=== PATIENT | female | born 1970 | race Caucasian/White ===

== ENCOUNTER 2018-05-30 09:21 | Emergency (ER) | payer MEDICARE, MEDICAID ==
[~2018-05-30] VITALS: Ht 177.8 cm; Wt 136.4 kg
[2018-05-30] MEDS ORDERED: OXCA300T4 PO (09:36)
[2018-05-30] MEDS ORDERED: QUET300T2 PO (09:36)
[2018-05-30] MEDS ORDERED: ALB0.5UD IH (09:36)
[2018-05-30] MEDS ORDERED: VENL150C2 PO (09:36)
[2018-05-30] MEDS ORDERED: FLUT1DIS4 INH (09:36)
[2018-05-30] MEDS ORDERED: normal saline 1000ML IV soln IVB ONE (09:40)
[2018-05-30] MEDS ORDERED: LORazepam 2 mg/ml vial IV ONE ×2 (09:40→11:10)
[2018-05-30] MEDS ORDERED: oxcarbazepine 150mg tablet PO STA (09:41)
[2018-05-30] MEDS ORDERED: quetiapine 100mg tablet PO SCH (09:45)
[2018-05-30 10:21] LABS: BASOPHILS % (AUTO) 0.3 % (0-1); EOSINOPHILS % (AUTO) 0 % (0-6); HEMATOCRIT 37.4 % (35.0-45.0); HEMOGLOBIN 13.2 g/dl (12.0-16.0); LYMPHOCYTES # (AUTO) 1.5 X10'3 (1.1-4.8); LYMPHOCYTES % (AUTO) 19.8 % (21-51); MEAN CORPUSCULAR HEMOGLOBIN 31.4 PG (27.0-31.0); MEAN CORPUSCULAR HGB CONC 35.3 % (33.0-36.5); MEAN PLATELET VOLUME 7.9 FL (7.4-10.4); MONOCYTES # (AUTO) 0.5 X10'3 (0-0.9); MONOCYTES % (AUTO) 6.9 % (2-12); NEUTROPHILS # (AUTO) 5.5 X10'3 (1.8-7.7); PLATELET COUNT 290 X10'3 (140-440); RED BLOOD COUNT 4.21 X10'6 (4.20-5.60); RED CELL DISTRIBUTION WIDTH 14.2 % (11.5-14.5); WHITE BLOOD COUNT 7.5 X10'3 (4.5-11.0)
[2018-05-30 10:31] LABS: PARTIAL THROMBOPLASTIN TIME 29 SECONDS (22-32); PROTHROMBIN TIME 10.6 SECONDS (9.0-12.0)
[2018-05-30 10:39] LABS: ALANINE AMINOTRANSFERASE 35 U/L (12-78); ALBUMIN 3.7 G/DL (3.4-5.0); ALBUMIN/GLOBULIN RATIO 0.9 (1.1-1.5); ALKALINE PHOSPHATASE 94 IU/L (46-116); ANION GAP 10 (8-16); ASPARTATE AMINO TRANSFERASE 19 U/L (10-37); BILIRUBIN,TOTAL 0.6 MG/DL (0.1-1.0); BLOOD UREA NITROGEN 8 MG/DL (7-18); BUN/CREATININE RATIO 9.6 (6.6-38.0); CALCIUM 9.2 MG/DL (8.5-10.1); CHLORIDE 104 MMOL/L (99-107); CREATININE 0.83 MG/DL (0.40-0.90); GLUCOSE 112 MG/DL (70-104); POTASSIUM 3.3 MMOL/L (3.5-5.1); SODIUM 135 MMOL/L (135-145); TOTAL CARBON DIOXIDE 20.6 MMOL/L (24-32); TOTAL PROTEIN 7.6 G/DL (6.4-8.2); eGFR 73 ML/MIN
[2018-05-30] MEDS ORDERED: POTA20TA19 PO (11:06)
[2018-05-30] MEDS ORDERED: diphenhydrAMINE 50 mg/ml inj IV ONE (11:30)
[2018-05-30 12:12] VITALS: BP 136/84
== END 2018-05-30 12:14 | disposition home or self-care (01) ==
LOC: ER 09:21
DX: E87.6 Hypokalemia (principal); J45.909 Unspecified asthma, uncomplicated; F31.9 Bipolar disorder, unspecified; F41.9 Anxiety disorder, unspecified; Z79.899 Other long term (current) drug therapy
CPT/HCPCS: 36415; 71045; 80053; 84484; 85025; 85610; 85730; 93005; 96374; 96375; 99285; J1200; J2060

== ENCOUNTER 2019-06-11 02:09 | Inpatient (IN) | payer BC, MEDICARE ==
[~2019-06-11] VITALS: Ht 177.8 cm; Wt 136.4 kg
[~2019-06-11 02:09] MED LIST: ALB0.5UD IH; FLUT1DIS4 INH; OXCA300T4 PO; QUET300T2 PO; VENL150C2 PO
[2019-06-11] MEDS ORDERED: ondansetron/PF 4mg/2ml inj IV ONE (02:20)
[2019-06-11] MEDS ORDERED: normal saline 1000ML IV soln IVB ONE (02:20)
[2019-06-11] MEDS: morphine 4 MG/ML inj SYRINge IV PRN ×2 (02:26→02:47)
[2019-06-11 02:48] LABS: BASOPHILS # (AUTO) 0.1 X10'3 (0-0.2); BASOPHILS % (AUTO) 0.8 % (0-1); EOSINOPHILS # (AUTO) 0.7 X10'3 (0-0.9); EOSINOPHILS % (AUTO) 7.7 % (0-6); HEMATOCRIT 39.4 % (35.0-45.0); HEMOGLOBIN 13.6 g/dl (12.0-16.0); LYMPHOCYTES # (AUTO) 2.4 X10'3 (1.1-4.8); LYMPHOCYTES % (AUTO) 27.6 % (21-51); MEAN CORPUSCULAR HEMOGLOBIN 31.2 PG (27.0-31.0); MEAN CORPUSCULAR HGB CONC 34.4 g/dL (33.0-36.5); MEAN CORPUSCULAR VOLUME 90.9 FL (78-98); MEAN PLATELET VOLUME 7.9 FL (7.4-10.4); MONOCYTES # (AUTO) 0.6 X10'3 (0-0.9); MONOCYTES % (AUTO) 7.2 % (2-12); NEUTROPHILS % (AUTO) 56.7 % (42-75); PLATELET COUNT 284 X10'3 (140-440); RED BLOOD COUNT 4.34 X10'6 (4.20-5.60); RED CELL DISTRIBUTION WIDTH 14.1 % (11.5-14.5); WHITE BLOOD COUNT 8.8 X10'3 (4.5-11.0)
--- NOTE | 2019-06-11 02:50 | NUR ---
WAS INFORMED BY ELEMENT SETTER THAT DAUGHTER AT BEDSIDE AND ASKING FOR MORE PAIN MEDS STRONGER THAN MORPHINE FOR HER MOTHER. PT PAIN NOT CONTROLLED WITH FIRST PRN DOSE OF MORPHINE, 2ND DOSE GIVEN. INFORMED DAUGHTER AND PT OF PLAN OF CARE AND BOTH VERBALIZED UNDERSTADNING
[2019-06-11 02:59] LABS: ALANINE AMINOTRANSFERASE 64 U/L (12-78); ALBUMIN 3.4 G/DL (3.4-5.0); ALBUMIN/GLOBULIN RATIO 0.9 (1.1-1.5); ALKALINE PHOSPHATASE 128 IU/L (46-116); ANION GAP 11 (8-16); ASPARTATE AMINO TRANSFERASE 41 U/L (10-37); BILIRUBIN,TOTAL 0.2 MG/DL (0.1-1.0); BLOOD UREA NITROGEN 15 MG/DL (7-18); BUN/CREATININE RATIO 16.1 (6.6-38.0); CALCIUM 8.7 MG/DL (8.5-10.1); CHLORIDE 108 MMOL/L (99-107); CREATININE 0.93 MG/DL (0.40-0.90); GLUCOSE 132 MG/DL (70-104); SODIUM 142 MMOL/L (135-145); TOTAL CARBON DIOXIDE 23.5 MMOL/L (24-32); TOTAL PROTEIN 7.2 G/DL (6.4-8.2); eGFR 64 ML/MIN
[2019-06-11 03:43] LABS: LIPASE > 30000 U/L (73-393)
[2019-06-11] MEDS ORDERED: fentaNYL/PF 50MCG/1 ML 2ML syringe IV ONE (04:00)
[2019-06-11 04:36] LABS: CHOLESTEROL 165 MG/DL (0-200); HDL CHOLESTEROL 33 MG/DL (35-60); LDL CHOLESTEROL 79 MG/DL (50-100); TRIGLYCERIDES 304 MG/DL (20-135)
[2019-06-11] MEDS: fentaNYL/PF 50MCG/1 ML 2ML syringe IV PRN ×2 (05:13→05:42)
[2019-06-11] MEDS ORDERED: LORA10TA7 PO (05:39)
[2019-06-11] MEDS ORDERED: OXCA600T5 PO (05:39)
[2019-06-11] MEDS ORDERED: FLUT16SP2 BOTHNARES (05:39)
[2019-06-11] MEDS ORDERED: LACT30003 PO (05:39)
[2019-06-11] MEDS ORDERED: VENL150C2 PO (05:39)
[2019-06-11] MEDS ORDERED: LEVO75TA7 PO (05:39)
[2019-06-11] MEDS ORDERED: CETI10TA14 PO (05:39)
[2019-06-11] MEDS ORDERED: IPRA3AMP9 IH (05:39)
[2019-06-11] MEDS ORDERED: HYDROmorphone 1 mg/ml syringe IV ONE (06:35)
[2019-06-11] MEDS ORDERED: diphenhydrAMINE 25mg capsule PO PRN (09:20)
[2019-06-11] MEDS ORDERED: magnesium 4gm in 100ml NS 100 ML IV PRN (09:20)
[2019-06-11] MEDS: K and/or MAG REPLACEMENT MC SCH (09:20)
[2019-06-11] MEDS ORDERED: potassium CL 10mEq/100ml bag 100 ML IV PRN ×2 (09:20)
[2019-06-11] MEDS ORDERED: HYDROcodone/acetaminophen 5mg/325mg tablet PO PRN (09:20)
[2019-06-11] MEDS ORDERED: magnesium hydroxide 30ml (MOM) UD suspension PO PRN (09:20)
[2019-06-11] MEDS ORDERED: diphenhydrAMINE 50 mg/ml inj IV PRN (09:20)
[2019-06-11] MEDS ORDERED: potassium Cl 20 mEq SR tablet PO PRN ×2 (09:20)
[2019-06-11] MEDS ORDERED: morphine 2 MG/ML inj. syringe IV PRN (09:20)
[2019-06-11] MEDS ORDERED: metoclopramide 5 mg/ml inj IV PRN (09:20)
[2019-06-11] MEDS ORDERED: acetaminophen 325mg tablet PO PRN ×2 (09:20)
[2019-06-11] MEDS ORDERED: acetaminophen 650mg rectal suppository RC PRN (09:20)
[2019-06-11] MEDS ORDERED: magnesium 2GM in 50ml NS 50 ML IV PRN (09:20)
[2019-06-11] MEDS ORDERED: mag hydrox/Alum hydrox/simeth 30ml oral suspension PO PRN (09:20)
[2019-06-11] MEDS ORDERED: magnesium Cl slow-release 64mg tablet PO PRN (09:20)
[2019-06-11] MEDS ORDERED: bisacodyl 10mg suppository rectal RC PRN (09:20)
[2019-06-11 09:43] LABS: CLARITY,URINE SLIGHTLY CLOUDY (Clear); COLOR,URINE STRAW (Yellow); GLUCOSE, URINE NEGATIVE (Neg); KETONES,URINE NEGATIVE (Neg); LEUKOCYTE ESTERASE ,URINE SMALL (Neg); NITRITES, URINE NEGATIVE (Neg); OCCULT BLOOD,URINE NEGATIVE (Neg); PH,URINE 5.5 (4.8-8.0); PROTEIN,URINE NEGATIVE (Neg); UROBILINOGEN,URINE 0.2 E.U/dL (0.2-1.0)
[2019-06-11 09:44] LABS: UA COLLECTION TYPE CLN CATCH MIDSTREAM
[2019-06-11 09:48] LABS: SQUAMOUS EPITHELIAL CELL,UR MODERATE /LPF (FEW)
[2019-06-11 09:49] LABS: BACTERIA,URINE 1+ /HPF (Neg); RBC,URINE 0-2 /HPF (0-2); WBC,URINE 0-4 /HPF (0-4)
[2019-06-11] MEDS: piperacillin/tazo 3.375gm/50ml 50 ML IV SCH ×3 (10:09→23:48)
[2019-06-11] MEDS: albuterol 2.5 MG/3 ML nebule NEB SCH ×3 (10:25→19:41)
[2019-06-11] MEDS: HYDROmorphone 1 mg/ml syringe IV PRN ×3 (10:44→22:30)
[2019-06-11] MEDS ORDERED: albuterol 2.5 MG/3 ML nebule NEB SCH (13:00)
[2019-06-11] MEDS ORDERED: OXCA300T16 PO (13:06)
[2019-06-11] MEDS ORDERED: MONT10TA24 PO (13:06)
[2019-06-11] MEDS ORDERED: RANI150T8 PO (13:06)
[2019-06-11] MEDS: dextrose 5%-normal saline 1,000 ML IV SCH ×3 (13:53→22:36)
[2019-06-11] MEDS: morphine 2 MG/ML inj. syringe IV PRN ×3 (14:00→23:46)
[2019-06-11 17:00] VITALS: BP 120/70
[2019-06-11] MEDS: ondansetron/PF 4mg/2ml inj IV PRN ×2 (17:14→23:46)
--- NOTE | 2019-06-11 18:33 | NUR ---
Problems reprioritized. Patient report given, questions answered & plan of care reviewed with Jolie JENNINGS.
[2019-06-11] MEDS: budesonide 0.5mg/2ml UD nebule IH SCH (19:41)
[2019-06-11 20:00] VITALS: BP 139/81
[2019-06-11] MEDS: quetiapine 100mg tablet PO SCH (21:04)
[2019-06-11] MEDS: oxcarbazepine 150mg tablet PO SCH (21:05)
[2019-06-11] MEDS ORDERED: albuterol 2.5 MG/3 ML nebule NEB PRN (23:05)
[2019-06-12] VITALS (17 sets, daily range): BP systolic 108–172; BP diastolic 62–116
[2019-06-12] MEDS: HYDROmorphone 1 mg/ml syringe IV PRN ×7 (02:53→22:19)
[2019-06-12 05:01] LABS: BASOPHILS % (AUTO) 0.1 % (0-1); EOSINOPHILS # (AUTO) 0.3 X10'3 (0-0.9); EOSINOPHILS % (AUTO) 3.7 % (0-6); HEMATOCRIT 36.7 % (35.0-45.0); HEMOGLOBIN 12.4 g/dl (12.0-16.0); LYMPHOCYTES # (AUTO) 1.2 X10'3 (1.1-4.8); MEAN CORPUSCULAR HEMOGLOBIN 31.1 PG (27.0-31.0); MEAN CORPUSCULAR HGB CONC 33.9 g/dL (33.0-36.5); MEAN CORPUSCULAR VOLUME 91.8 FL (78-98); MEAN PLATELET VOLUME 8.1 FL (7.4-10.4); MONOCYTES # (AUTO) 0.7 X10'3 (0-0.9); MONOCYTES % (AUTO) 8.4 % (2-12); NEUTROPHILS # (AUTO) 6.1 X10'3 (1.8-7.7); NEUTROPHILS % (AUTO) 72.8 % (42-75); PLATELET COUNT 257 X10'3 (140-440); RED CELL DISTRIBUTION WIDTH 14.3 % (11.5-14.5); WHITE BLOOD COUNT 8.3 X10'3 (4.5-11.0)
[2019-06-12 05:16] LABS: ALANINE AMINOTRANSFERASE 58 U/L (12-78); ALBUMIN/GLOBULIN RATIO 0.8 (1.1-1.5); ALKALINE PHOSPHATASE 124 IU/L (46-116); ANION GAP 7 (8-16); ASPARTATE AMINO TRANSFERASE 31 U/L (10-37); BILIRUBIN,TOTAL 0.7 MG/DL (0.1-1.0); BLOOD UREA NITROGEN 10 MG/DL (7-18); BUN/CREATININE RATIO 12.5 (6.6-38.0); CALCIUM 8.7 MG/DL (8.5-10.1); CHLORIDE 105 MMOL/L (99-107); GLUCOSE 123 MG/DL (70-104); MAGNESIUM 1.8 MG/DL (1.5-2.4); SODIUM 139 MMOL/L (135-145); TOTAL CARBON DIOXIDE 26.7 MMOL/L (24-32); TOTAL PROTEIN 6.7 G/DL (6.4-8.2); eGFR 76 ML/MIN
[2019-06-12 05:39] LABS: LIPASE 7338 U/L (73-393)
--- NOTE | 2019-06-12 06:00 | NUR ---
Patient in room [facility] 345. I have received report from Jolie JENNINGS and had the opportunity to ask questions and assume patient care.
--- NOTE | 2019-06-12 06:28 | NUR ---
Problems reprioritized. Patient report given, questions answered & plan of care reviewed with Ivett JENNINGS. Addendum: 06/12/19 at 7547 by Jolie Ayala RN Amended: Links added.
[2019-06-12] MEDS: dextrose 5%-normal saline 1,000 ML IV SCH ×4 (06:35→18:22)
[2019-06-12] MEDS: ondansetron/PF 4mg/2ml inj IV PRN ×2 (07:12→17:08)
[2019-06-12] MEDS: albuterol 2.5 MG/3 ML nebule NEB SCH ×4 (07:20→20:42)
[2019-06-12] MEDS: budesonide 0.5mg/2ml UD nebule IH SCH ×2 (07:21→20:42)
[2019-06-12] MEDS: cetirizine 10mg tablet PO SCH (08:00)
[2019-06-12] MEDS: K and/or MAG REPLACEMENT MC SCH (08:00)
[2019-06-12] MEDS ORDERED: levoTHYROXINE 75mcg tablet PO SCH (08:00)
[2019-06-12] MEDS: famotidine 20mg tablet PO SCH ×2 (08:00→20:13)
[2019-06-12] MEDS: venlafaxine XR 75mg capsule (Q24H) PO SCH (08:00)
[2019-06-12] MEDS: levoTHYROXINE 75mcg tablet PO SCH (08:00)
[2019-06-12] MEDS: piperacillin/tazo 3.375gm/50ml 50 ML IV SCH ×3 (08:55→23:00)
[2019-06-12] MEDS: fluticasone nasal spray 16GM bottle NS SCH (08:59)
[2019-06-12] MEDS ORDERED: fentaNYL/PF 50MCG/1 ML 2ML syringe ONE (13:59)
[2019-06-12] MEDS ORDERED: glucagon, human recombinant 1mg kit ONE (14:00)
[2019-06-12] MEDS ORDERED: iohexol 300 MG/1 ML 50ml polymer ONE (14:00)
[2019-06-12] MEDS ORDERED: MIDAZolam 5mg/5ml vial ONE (14:00)
[2019-06-12] MEDS ORDERED: diphenhydrAMINE 50 mg/ml inj ONE (14:00)
[2019-06-12] MEDS ORDERED: LIDOcaine Viscous 15ml cup ONE (14:01)
--- NOTE | 2019-06-12 14:19 | NUR ---
Called [facility] let [facility] know pt wenr down to GI lab.
[2019-06-12] MEDS: HYDROcodone/acetaminophen 10/325mg tab PO PRN (18:19)
--- NOTE | 2019-06-12 18:25 | NUR ---
Problems reprioritized. Patient report given, questions answered & plan of care reviewed with Holland JENNINSG.
--- NOTE | 2019-06-12 18:30 | NUR ---
Patient in room [facility] 345. I have received report from Albert Bautista RN and had the opportunity to ask questions and assume patient care.
[2019-06-12] MEDS: montelukast 10mg tablet PO SCH (20:13)
[2019-06-12] MEDS: lactobacillus rhamnosus 10,000 MMU CELLS/CAPSULE PO SCH (20:13)
[2019-06-12] MEDS: quetiapine 100mg tablet PO SCH (20:14)
[2019-06-12] MEDS: oxcarbazepine 150mg tablet PO SCH (20:14)
[2019-06-12] MEDS ORDERED: oxcarbazepine 150mg tablet PO SCH (21:00)
[2019-06-13] MEDS: HYDROmorphone 1 mg/ml syringe IV PRN ×5 (01:43→20:20)
--- NOTE | 2019-06-13 01:45 | NUR ---
Patient looks to be getting a lump proximal to her hand iv insertion site. Pt states "It doesn't hurt. That's part of my wrist bone" and that "There is nothing wrong". Will continue to monitor.
[2019-06-13] MEDS: ondansetron/PF 4mg/2ml inj IV PRN (04:11)
[2019-06-13] MEDS: dextrose 5%-normal saline 1,000 ML IV SCH ×2 (04:58→15:59)
[2019-06-13 05:21] LABS: ALANINE AMINOTRANSFERASE 84 U/L (12-78); ALBUMIN 2.8 G/DL (3.4-5.0); ALBUMIN/GLOBULIN RATIO 0.7 (1.1-1.5); ALKALINE PHOSPHATASE 176 IU/L (46-116); ANION GAP 8 (8-16); ASPARTATE AMINO TRANSFERASE 53 U/L (10-37); BILIRUBIN,TOTAL 1.7 MG/DL (0.1-1.0); BLOOD UREA NITROGEN 8 MG/DL (7-18); BUN/CREATININE RATIO 10.7 (6.6-38.0); CALCIUM 8.1 MG/DL (8.5-10.1); CHLORIDE 104 MMOL/L (99-107); CREATININE 0.75 MG/DL (0.40-0.90); GLUCOSE 126 MG/DL (70-104); LIPASE 1147 U/L (73-393); MAGNESIUM 1.7 MG/DL (1.5-2.4); PHOSPHORUS 2.9 MG/DL (2.3-4.5); POTASSIUM 3.6 MMOL/L (3.5-5.1); SODIUM 138 MMOL/L (135-145); TOTAL CARBON DIOXIDE 26.1 MMOL/L (24-32); TOTAL PROTEIN 6.6 G/DL (6.4-8.2); eGFR 82 ML/MIN
[2019-06-13 06:22] LABS: BASOPHILS % (AUTO) 0.5 % (0-1); EOSINOPHILS # (AUTO) 0.4 X10'3 (0-0.9); EOSINOPHILS % (AUTO) 4.3 % (0-6); HEMATOCRIT 34.8 % (35.0-45.0); HEMOGLOBIN 11.5 g/dl (12.0-16.0); LYMPHOCYTES # (AUTO) 1.3 X10'3 (1.1-4.8); LYMPHOCYTES % (AUTO) 14.7 % (21-51); MEAN CORPUSCULAR HEMOGLOBIN 30.9 PG (27.0-31.0); MEAN CORPUSCULAR HGB CONC 33.2 g/dL (33.0-36.5); MEAN CORPUSCULAR VOLUME 92.9 FL (78-98); MEAN PLATELET VOLUME 8.4 FL (7.4-10.4); MONOCYTES % (AUTO) 12.1 % (2-12); NEUTROPHILS # (AUTO) 5.9 X10'3 (1.8-7.7); NEUTROPHILS % (AUTO) 68.4 % (42-75); PLATELET COUNT 237 X10'3 (140-440); RED BLOOD COUNT 3.74 X10'6 (4.20-5.60); RED CELL DISTRIBUTION WIDTH 14.5 % (11.5-14.5); WHITE BLOOD COUNT 8.6 X10'3 (4.5-11.0)
--- NOTE | 2019-06-13 06:38 | NUR ---
Problems reprioritized. Patient report given, questions answered & plan of care reviewed with Daphnie RN.
--- NOTE | 2019-06-13 06:45 | NUR ---
Patient in room [facility] 345. I have received report from DICK Lino and had the opportunity to ask questions and assume patient care.
[2019-06-13 07:00] VITALS: BP 129/70
[2019-06-13] MEDS: albuterol 2.5 MG/3 ML nebule NEB SCH ×4 (07:00→20:14)
[2019-06-13] MEDS: piperacillin/tazo 3.375gm/50ml 50 ML IV SCH ×2 (07:18→15:11)
[2019-06-13] MEDS: HYDROcodone/acetaminophen 10/325mg tab PO PRN (07:18)
[2019-06-13] MEDS: cetirizine 10mg tablet PO SCH (07:19)
[2019-06-13] MEDS: venlafaxine XR 75mg capsule (Q24H) PO SCH (07:19)
[2019-06-13] MEDS: famotidine 20mg tablet PO SCH ×2 (07:19→20:24)
[2019-06-13] MEDS: levoTHYROXINE 75mcg tablet PO SCH (07:19)
[2019-06-13] MEDS: lactobacillus rhamnosus 10,000 MMU CELLS/CAPSULE PO SCH ×2 (07:19→20:24)
[2019-06-13] MEDS: fluticasone nasal spray 16GM bottle NS SCH (07:20)
[2019-06-13] MEDS: budesonide 0.5mg/2ml UD nebule IH SCH ×2 (08:00→20:00)
[2019-06-13] MEDS: K and/or MAG REPLACEMENT MC SCH (08:00)
--- NOTE | 2019-06-13 10:35 | NUR ---
Pain c/o of pain. [place] 10/325 given for pain, pt states pain persists. Requesting other form of pain medication. Dr. Ling notified x2. no new orders at this time.
[2019-06-13 11:00] VITALS: BP 138/65
--- NOTE | 2019-06-13 18:32 | NUR ---
Problems reprioritized. Patient report given, questions answered & plan of care reviewed with DICK Traylor.
--- NOTE | 2019-06-13 18:42 | NUR ---
Patient in room [facility] 345. I have received report from SULEIMAN JENNINGS and had the opportunity to ask questions and assume patient care. Addendum: 06/13/19 at 1842 by Kymberly Espitia RN Amended: Links added.
--- NOTE | 2019-06-13 19:15 | NUR ---
pt up ambulating in the room to brp tolerATED WELL.
[2019-06-13 20:00] VITALS: BP 113/52
--- NOTE | 2019-06-13 20:15 | NUR ---
pt took hs meds and medicated for c/o pain to abd and discussed medications with the pt.
[2019-06-13] MEDS: quetiapine 100mg tablet PO SCH (20:23)
[2019-06-13] MEDS: oxcarbazepine 150mg tablet PO SCH (20:23)
[2019-06-13] MEDS: montelukast 10mg tablet PO SCH (20:24)
--- NOTE | 2019-06-13 21:35 | NUR ---
pt cpap unit set up for her and she said she would put it on herself when ready for sleep. just added distilled water to unit to the line for her and closed unit as instructed for her.
--- NOTE | 2019-06-13 23:14 | NUR ---
resting eyes closed with cpap on no s&s of distress heart rate at 110 at rest.
[2019-06-14] VITALS: BP 112/64
[2019-06-14] MEDS: piperacillin/tazo 3.375gm/50ml 50 ML IV SCH ×2 (00:39→09:56)
--- NOTE | 2019-06-14 00:52 | NUR ---
pt appears comfortable resting eyes closed no s&s of distress at this time.
--- NOTE | 2019-06-14 02:52 | NUR ---
remains on cpap resting without s&s of distress at this time.
--- NOTE | 2019-06-14 03:52 | NUR ---
resting without changes.
[2019-06-14] MEDS: HYDROmorphone 1 mg/ml syringe IV PRN ×2 (04:23→09:15)
[2019-06-14] MEDS: dextrose 5%-normal saline 1,000 ML IV SCH (04:24)
[2019-06-14] MEDS: ondansetron/PF 4mg/2ml inj IV PRN (04:27)
--- NOTE | 2019-06-14 04:31 | NUR ---
pt awoke in pain medicated with iv diladid for this then c/o nausea and medicated for this as well. grabbed emesis bag but no emesis.
[2019-06-14 06:06] LABS: BASOPHILS # (AUTO) 0.1 X10'3 (0-0.2); BASOPHILS % (AUTO) 0.8 % (0-1); EOSINOPHILS # (AUTO) 0.4 X10'3 (0-0.9); EOSINOPHILS % (AUTO) 4.1 % (0-6); HEMATOCRIT 31.6 % (35.0-45.0); HEMOGLOBIN 10.9 g/dl (12.0-16.0); LYMPHOCYTES # (AUTO) 1.1 X10'3 (1.1-4.8); LYMPHOCYTES % (AUTO) 12.2 % (21-51); MEAN CORPUSCULAR HEMOGLOBIN 31.7 PG (27.0-31.0); MEAN CORPUSCULAR HGB CONC 34.5 g/dL (33.0-36.5); MEAN CORPUSCULAR VOLUME 91.9 FL (78-98); MEAN PLATELET VOLUME 8.1 FL (7.4-10.4); MONOCYTES % (AUTO) 10.8 % (2-12); NEUTROPHILS # (AUTO) 6.5 X10'3 (1.8-7.7); NEUTROPHILS % (AUTO) 72.1 % (42-75); PLATELET COUNT 241 X10'3 (140-440); RED BLOOD COUNT 3.43 X10'6 (4.20-5.60); RED CELL DISTRIBUTION WIDTH 14.2 % (11.5-14.5)
[2019-06-14 06:32] LABS: ALANINE AMINOTRANSFERASE 61 U/L (12-78); ALBUMIN 2.6 G/DL (3.4-5.0); ALBUMIN/GLOBULIN RATIO 0.7 (1.1-1.5); ALKALINE PHOSPHATASE 170 IU/L (46-116); ANION GAP 8 (8-16); ASPARTATE AMINO TRANSFERASE 23 U/L (10-37); BILIRUBIN,TOTAL 1.3 MG/DL (0.1-1.0); BLOOD UREA NITROGEN 7 MG/DL (7-18); BUN/CREATININE RATIO 9.6 (6.6-38.0); CALCIUM 8.2 MG/DL (8.5-10.1); CHLORIDE 105 MMOL/L (99-107); CREATININE 0.73 MG/DL (0.40-0.90); GLUCOSE 138 MG/DL (70-104); LIPASE 406 U/L (73-393); MAGNESIUM 1.8 MG/DL (1.5-2.4); PHOSPHORUS 2.6 MG/DL (2.3-4.5); POTASSIUM 3.3 MMOL/L (3.5-5.1); SODIUM 139 MMOL/L (135-145); TOTAL CARBON DIOXIDE 25.6 MMOL/L (24-32); TOTAL PROTEIN 6.6 G/DL (6.4-8.2); eGFR 85 ML/MIN
--- NOTE | 2019-06-14 06:36 | NUR ---
Problems reprioritized. Patient report given, questions answered & plan of care reviewed with Andreina Valle. Addendum: 06/14/19 at 0637 by Kymberly Espitia RN Amended: Links added.
[2019-06-14 07:00] VITALS: BP 132/71
[2019-06-14] MEDS: budesonide 0.5mg/2ml UD nebule IH SCH (07:15)
[2019-06-14] MEDS: albuterol 2.5 MG/3 ML nebule NEB SCH ×2 (07:15→11:00)
[2019-06-14] MEDS: K and/or MAG REPLACEMENT MC SCH (08:00)
[2019-06-14] MEDS ORDERED: levoTHYROXINE 75mcg tablet PO SCH (08:00)
--- NOTE | 2019-06-14 09:49 | NUR ---
PAGED MD QUINTERO PAGER ID: [phone] MESSAGE: [id number] JEREMY MANTILLA PT. POTASSIUM 3.3. NO PROTOCOL ORDERED. MAY WE HAVE AN ORDER? LAUREN [id number]
[2019-06-14] MEDS: lactobacillus rhamnosus 10,000 MMU CELLS/CAPSULE PO SCH (09:57)
[2019-06-14] MEDS: venlafaxine XR 75mg capsule (Q24H) PO SCH (09:57)
[2019-06-14] MEDS: fluticasone nasal spray 16GM bottle NS SCH (09:57)
[2019-06-14] MEDS: famotidine 20mg tablet PO SCH (09:58)
[2019-06-14] MEDS: cetirizine 10mg tablet PO SCH (09:58)
[2019-06-14] MEDS ORDERED: AMOX-419 PO (10:03)
[2019-06-14] MEDS ORDERED: LACT1CAP26 PO (10:03)
[2019-06-14] MEDS ORDERED: SYN0.088T PO (10:03)
[2019-06-14] MEDS ORDERED: potassium Cl 20 mEq SR tablet PO PRN ×2 (10:05)
[2019-06-14] MEDS ORDERED: magnesium 4gm in 100ml NS 100 ML IV PRN (10:05)
[2019-06-14] MEDS ORDERED: magnesium Cl slow-release 64mg tablet PO PRN (10:05)
[2019-06-14] MEDS ORDERED: potassium CL 10mEq/100ml bag 100 ML IV PRN (10:05)
[2019-06-14] MEDS ORDERED: potassium Cl 20 mEq SR tablet PO STA (10:44)
[2019-06-14] MEDS ORDERED: DICY10CA14 PO (12:18)
--- NOTE | 2019-06-14 13:02 | NUR ---
Pt discharged home via [employer] self pay. Pt will p/u perscriptions at [facility]. Dr Ling added anti-spasmotic and pain med norco per pt request. Pt will walk in norco and add on anti-spasmotic was called into pharmacy via community development worker after initial meds were called in. Pt appropriate for discharge. No current needs. IV taken out, no tele and all belongings taken from room.
== END 2019-06-14 13:10 | disposition home or self-care (01) | DRG 439 ==
LOC: ER 02:10 → SUR 3N 17:00
PROVIDERS: ADMIT Family Medicine; ATTEND Family Medicine
PROC: 0FPB8DZ Removal of Intraluminal Device from Hepatobiliary Duct, Via Natural or Artificial Opening Endoscopic (ICD-10-PCS; principal; 2019-06-12)
PROC: BF101ZZ Fluoroscopy of Bile Ducts using Low Osmolar Contrast (ICD-10-PCS; 2019-06-12)
PROC: 0F798ZZ Dilation of Common Bile Duct, Via Natural or Artificial Opening Endoscopic (ICD-10-PCS; 2019-06-12)
DX: K85.10 Biliary acute pancreatitis without necrosis or infection (principal); K80.51 Calculus of bile duct without cholangitis or cholecystitis with obstruction; F31.81 Bipolar II disorder; N39.0 Urinary tract infection, site not specified; D35.02 Benign neoplasm of left adrenal gland; E78.00 Pure hypercholesterolemia, unspecified; E78.1 Pure hyperglyceridemia; J44.9 Chronic obstructive pulmonary disease, unspecified; K57.30 Diverticulosis of large intestine without perforation or abscess without bleeding; K83.8 Other specified diseases of biliary tract; N18.9 Chronic kidney disease, unspecified; F12.90 Cannabis use, unspecified, uncomplicated; E03.9 Hypothyroidism, unspecified; F41.9 Anxiety disorder, unspecified; N83.202 Unspecified ovarian cyst, left side; K86.89 Other specified diseases of pancreas; Z87.891 Personal history of nicotine dependence; Z90.49 Acquired absence of other specified parts of digestive tract; Z79.890 Hormone replacement therapy
CPT/HCPCS: 36415; 43275; 74176; 80053; 80061; 81001; 83605; 83690; 83735; 84100; 84145; 84443; 85025; 87040; 87081; 87088; 94640; 94667; 94760; 96374; 96375; 96376; 99152; 99153; 99285; A4620; C1769; C1773; G0378; J1170; J1200; J1610; J2250; J2270; J2405; J2543; J3010; J7040; J7042; J7626; Q9967

== ENCOUNTER 2020-07-21 16:37 | Emergency (ER) | payer MEDICARE, OTHER ==
[~2020-07-21] VITALS: Ht 177.8 cm; Wt 141.8 kg
[~2020-07-21 16:37] MED LIST changes: +CETI10TA14 PO; +DICY10CA14 PO; +FLUT16SP2 BOTHNARES; +IPRA3AMP9 IH; +LACT1CAP26 PO; +LACT30003 PO; +MONT10TA26 PO; +OXCA300T16 PO; -OXCA300T4 PO; +RANI150T8 PO
[2020-07-21 17:43] LABS: BASOPHILS # (AUTO) 0.1 X10'3 (0-0.2); BASOPHILS % (AUTO) 1.4 % (0-1); EOSINOPHILS % (AUTO) 12.5 % (0-6); HEMATOCRIT 36.8 % (35.0-45.0); HEMOGLOBIN 12.5 g/dl (12.0-16.0); LYMPHOCYTES # (AUTO) 1.7 X10'3 (1.1-4.8); LYMPHOCYTES % (AUTO) 20.6 % (21-51); MEAN CORPUSCULAR HEMOGLOBIN 30.5 PG (27.0-31.0); MEAN CORPUSCULAR HGB CONC 33.9 g/dL (33.0-36.5); MEAN PLATELET VOLUME 8.3 FL (7.4-10.4); MONOCYTES # (AUTO) 0.7 X10'3 (0-0.9); MONOCYTES % (AUTO) 7.9 % (2-12); NEUTROPHILS # (AUTO) 4.8 X10'3 (1.8-7.7); NEUTROPHILS % (AUTO) 57.6 % (42-75); PLATELET COUNT 260 X10'3 (140-440); RED BLOOD COUNT 4.09 X10'6 (4.20-5.60); RED CELL DISTRIBUTION WIDTH 14.4 % (11.5-14.5); WHITE BLOOD COUNT 8.3 X10'3 (4.5-11.0)
[2020-07-21 18:03] LABS: ALANINE AMINOTRANSFERASE 30 U/L (12-78); ALBUMIN 4.4 G/DL (3.4-5.0); ALBUMIN/GLOBULIN RATIO 1.2 (1.1-1.5); ALKALINE PHOSPHATASE 106 IU/L (46-116); AMYLASE 33 U/L (25-115); ANION GAP 10 (8-16); ASPARTATE AMINO TRANSFERASE 12 U/L (10-37); BILIRUBIN,TOTAL 0.4 MG/DL (0.1-1.0); BLOOD UREA NITROGEN 20 MG/DL (7-18); BUN/CREATININE RATIO 19.2 (6.6-38.0); CALCIUM 9.3 MG/DL (8.5-10.1); CHLORIDE 105 MMOL/L (99-107); CREATININE 1.04 MG/DL (0.40-0.90); GLUCOSE 104 MG/DL (70-104); LIPASE 68 U/L (73-393); POTASSIUM 3.5 MMOL/L (3.5-5.1); SODIUM 138 MMOL/L (135-145); TOTAL CARBON DIOXIDE 23.1 MMOL/L (24-32); TOTAL PROTEIN 8.1 G/DL (6.4-8.2); eGFR 56 ML/MIN
[2020-07-21] MEDS ORDERED: iohexol 300mg/ml 100ml inj. ONE (18:29)
[2020-07-21 18:46] LABS: CLARITY,URINE SLIGHTLY CLOUDY (Clear); COLOR,URINE STRAW (Yellow); GLUCOSE, URINE NEGATIVE (Neg); KETONES,URINE NEGATIVE (Neg); LEUKOCYTE ESTERASE ,URINE SMALL (Neg); NITRITES, URINE NEGATIVE (Neg); OCCULT BLOOD,URINE TRACE-INTACT (Neg); PH,URINE 5.5 (4.8-8.0); PROTEIN,URINE NEGATIVE (Neg); URINE HCG NEGATIVE (NEG); UROBILINOGEN,URINE 0.2 E.U/dL (0.2-1.0)
[2020-07-21 18:48] LABS: UA COLLECTION TYPE CLN CATCH MIDSTREAM
[2020-07-21 18:53] LABS: BACTERIA,URINE 1+ /HPF (Neg); RBC,URINE 0-2 /HPF (0-2); SQUAMOUS EPITHELIAL CELL,UR MODERATE /LPF (FEW); WBC,URINE 0-4 /HPF (0-4)
[2020-07-21] MEDS ORDERED: morphine 4 MG/ML inj SYRINge IV ONE (19:10)
[2020-07-21] MEDS ORDERED: ondansetron/PF 4mg/2ml inj IV ONE (19:10)
[2020-07-21 19:59] VITALS: BP 142/103
== END 2020-07-21 20:00 | disposition home or self-care (01) ==
LOC: ER 16:37
DX: K42.9 Umbilical hernia without obstruction or gangrene (principal); R10.11 Right upper quadrant pain; R11.0 Nausea; J45.909 Unspecified asthma, uncomplicated; F41.9 Anxiety disorder, unspecified; F31.9 Bipolar disorder, unspecified; Z90.49 Acquired absence of other specified parts of digestive tract; Z79.899 Other long term (current) drug therapy
CPT/HCPCS: 36415; 74177; 80053; 81001; 81025; 82150; 83605; 83690; 85025; 87088; 96374; 96375; 99285; J2270; J2405; Q9967

== ENCOUNTER 2020-08-29 11:47 | Inpatient (IN) | payer MEDICARE, OTHER ==
[2020-08-29] VITALS (10 sets, daily range): BP systolic 97–127; BP diastolic 51–72
[~2020-08-29] VITALS: Ht 177.8 cm; Wt 134.6 kg
[2020-08-29] MEDS: potassium CL 20mEq in D5-1/2NS 1,000 ML IV SCH (00:30)
[2020-08-29] MEDS: normal saline 1000ml 1,000 ML IV SCH (00:30)
[2020-08-29] MEDS: HYDROmorphone/NS 1 mg/ml CADD 50 ML IV SCH (01:00)
[2020-08-29 14:01] LABS: BASOPHILS # (AUTO) 0.1 X10'3 (0-0.2); BASOPHILS % (AUTO) 0.6 % (0-1); EOSINOPHILS # (AUTO) 0.1 X10'3 (0-0.9); EOSINOPHILS % (AUTO) 0.8 % (0-6); HEMATOCRIT 39.1 % (35.0-45.0); HEMOGLOBIN 13.3 g/dl (12.0-16.0); LYMPHOCYTES # (AUTO) 1.2 X10'3 (1.1-4.8); LYMPHOCYTES % (AUTO) 11.3 % (21-51); MEAN CORPUSCULAR HEMOGLOBIN 30.6 PG (27.0-31.0); MEAN PLATELET VOLUME 8.5 FL (7.4-10.4); MONOCYTES # (AUTO) 0.9 X10'3 (0-0.9); MONOCYTES % (AUTO) 8.4 % (2-12); NEUTROPHILS # (AUTO) 8.3 X10'3 (1.8-7.7); NEUTROPHILS % (AUTO) 78.9 % (42-75); PLATELET COUNT 279 X10'3 (140-440); RED BLOOD COUNT 4.35 X10'6 (4.20-5.60); RED CELL DISTRIBUTION WIDTH 15.1 % (11.5-14.5); WHITE BLOOD COUNT 10.6 X10'3 (4.5-11.0)
[2020-08-29] MEDS ORDERED: normal saline 1000ML IV soln IVB ONE (14:10)
[2020-08-29] MEDS ORDERED: ondansetron/PF 4mg/2ml inj IV ONE ×2 (14:10→16:35)
[2020-08-29 14:14] LABS: ALANINE AMINOTRANSFERASE 25 U/L (12-78); ALBUMIN 4.2 G/DL (3.4-5.0); ALKALINE PHOSPHATASE 142 IU/L (46-116); ANION GAP 16 (8-16); ASPARTATE AMINO TRANSFERASE 18 U/L (10-37); BILIRUBIN,TOTAL 0.6 MG/DL (0.1-1.0); BLOOD UREA NITROGEN 6 MG/DL (7-18); BUN/CREATININE RATIO 6.3 (6.6-38.0); CALCIUM 9.3 MG/DL (8.5-10.1); CHLORIDE 102 MMOL/L (99-107); CREATININE 0.96 MG/DL (0.40-0.90); GLUCOSE 118 MG/DL (70-104); LIPASE < 50 U/L (73-393); POTASSIUM 3.5 MMOL/L (3.5-5.1); SODIUM 136 MMOL/L (135-145); TOTAL CARBON DIOXIDE 17.6 MMOL/L (24-32); TOTAL PROTEIN 8.6 G/DL (6.4-8.2); eGFR 61 ML/MIN
[2020-08-29] MEDS: diatr meglu/diatrizoate 30ml oral sol.-(3 dose) bottle PO SCH ×3 (14:26→16:55)
[2020-08-29] MEDS: morphine 4 MG/ML inj SYRINge IV PRN ×2 (14:26→16:40)
--- NOTE | 2020-08-29 16:35 | NUR ---
called ct to check status
[2020-08-29] MEDS ORDERED: proCHLORperazine 10 MG/2 ml inj IV PRN ×2 (18:05→22:10)
[2020-08-29] MEDS ORDERED: HYDROmorphone 1 mg/ml syringe IV ONE (18:05)
[2020-08-29] MEDS ORDERED: normal saline 1000ML IV soln IV ONE (18:05)
[2020-08-29] MEDS ORDERED: piperacillin/tazo 3.375gm/50ml 50 ML IV ONE (18:05)
--- NOTE | 2020-08-29 19:20 | NUR ---
DR GUILLAUME AT BEDSIDE
--- NOTE | 2020-08-29 19:25 | NUR ---
DR WEBSTER AT BEDSIDE
--- NOTE | 2020-08-29 19:28 | NUR ---
Received from OR via BED, accompanied by Anesthesiologist DR DAY and report given by Anesthesiologist. PT DROWSY, DENIES PAIN, LEFT HIP W/2 LARGE BANDAIDS CDI, STEVEN CATHETER TO GRAVITY DRAINAGE W/YELLOW URINE IN DRAINAGE BAG, BLANKET WARMER APPLIED FOR TEMP 35.9. Addendum: 08/29/20 at 2002 by Keeley Malone RN Amended: Links added. Addendum: 08/29/20 at 2338 by Keeley Malone RN ERROR: NOTE ABOVE IS ON A DIFFERENT PT, WRONG PATIENT
[2020-08-29] MEDS ORDERED: potassium CL 10mEq/100ml bag 100 ML IV PRN ×2 (19:40)
[2020-08-29] MEDS ORDERED: morphine 2 MG/ML inj. syringe IV PRN ×3 (19:40→22:10)
[2020-08-29] MEDS ORDERED: potassium Cl 20 mEq SR tablet PO PRN ×2 (19:40)
[2020-08-29] MEDS ORDERED: ondansetron/PF 4mg/2ml inj IV PRN ×2 (19:40→22:10)
[2020-08-29] MEDS: topiramate 100mg tablet PO SCH (20:00)
[2020-08-29] MEDS ORDERED: PANT-47 PO (20:01)
[2020-08-29] MEDS ORDERED: LEVO88TA39 PO (20:01)
[2020-08-29] MEDS ORDERED: TOP100T PO (20:01)
[2020-08-29] MEDS ORDERED: propofol inj 20 ML IV ONE (20:08)
[2020-08-29] MEDS ORDERED: midazolam 2 mg/2 ml injection ONE (20:08)
[2020-08-29] MEDS ORDERED: fentaNYL /PF 50mcg/ml 5ml ampule ONE (20:08)
[2020-08-29] MEDS ORDERED: rocuronium 10mg/ml inj IV ONE ×2 (20:08→22:14)
[2020-08-29] MEDS ORDERED: ceFOXitin 2GM-NS 50mL ADDVANT. 50 ML IV ONE (20:14)
[2020-08-29] MEDS ORDERED: HYOS-26 PO (20:54)
[2020-08-29] MEDS ORDERED: QUETIAPINE 150 MG TAB.SR.24H PO SCH (21:00)
[2020-08-29] MEDS: oxcarbazepine 150mg tablet PO SCH (21:00)
[2020-08-29] MEDS ORDERED: albuterol 2.5 MG/3 ML nebule NEB PRN (21:10)
[2020-08-29] MEDS ORDERED: ringers solution, lacted 1,000 ML IV SCH (22:10)
[2020-08-29] MEDS ORDERED: morphine 4 MG/ML inj SYRINge IV PRN (22:10)
[2020-08-29] MEDS ORDERED: meperidine/PF 25mg/ml syringe IV PRN ×2 (22:10)
[2020-08-29] MEDS ORDERED: fentaNYL/PF 50MCG/1 ML 2ML syringe ONE (22:14)
[2020-08-29] MEDS ORDERED: glycopyrrolate 0.2mg/ml inj ONE (22:49)
[2020-08-29] MEDS ORDERED: neostigmine methylsulfate 1 MG/ML 10ml vial ONE (22:49)
[2020-08-29] MEDS ORDERED: naloxone 0.4 mg/ml inj IV PRN (22:55)
[2020-08-29] MEDS ORDERED: CADD PCA waste documentation MC PRN (22:55)
--- NOTE | 2020-08-29 23:09 | NUR ---
Received from OR via BED, accompanied by Anesthesiologist DR DAY and report given by Anesthesiologist. PT PAINFUL, RESTLESS, ABDOMEN W/ABD BINDER, WOUND VAC W/SETTINGS 125MMHG LCS, NO DRAINAGE, STEVEN CATHETER TO GRAVITY DRAINAGE W/YELLOW URINE IN DRAINAGE BAG. Addendum: 08/29/20 at 2334 by Keeley Malone RN Amended: Links added.
[2020-08-29] MEDS: ondansetron/PF 4mg/2ml inj IV PRN (23:20)
[2020-08-29] MEDS: meperidine/PF 25mg/ml syringe IV PRN ×3 (23:20→23:36)
[2020-08-29] MEDS ORDERED: HYDROmorphone inj. 0.5 MG/0.5 ML DISP.SYRIN IV PRN ×2 (23:40)
[2020-08-30] VITALS (16 sets, daily range): BP systolic 118–154; BP diastolic 66–84
--- NOTE | 2020-08-30 00:15 | NUR ---
PATIENT ADMITTED TO ROOM 3012A FROM RECOVERY ROOM AFTER HERNIA REPAIR WAS DONE BY DR. SEGOVIA. PLACED COMFORTABLE IN BED. VITAL SIGNS MONITORED.
[2020-08-30] MEDS: K and/or MAG REPLACEMENT MC SCH ×3 (00:30→20:00)
[2020-08-30] MEDS: HYDROmorphone/NS 1 mg/ml CADD 50 ML IV SCH ×13 (00:43→23:00)
--- NOTE | 2020-08-30 00:49 | NUR ---
Report called to receiving nurse. Transferred via BED, 2 BAGS OF PERSONAL Belongings AND 1 CPAP MACHINE SENT W/PT TO ROOM 4012A, RECEIVING RN AT BEDSIDE TO RECEIVE PT, BLL, CALL LIGHT GIVEN, SIDE RAILS UP X 2. Special Issues communicated to receiving nurse. YES. Addendum: 08/30/20 at 0056 by Keeley Malone RN Amended: Links added.
[2020-08-30] MEDS: piperacillin/tazo 3.375gm/50ml 50 ML IV SCH ×4 (02:58→23:28)
[2020-08-30 06:22] LABS: BASOPHILS % (AUTO) 0.1 % (0-1); EOSINOPHILS % (AUTO) 0 % (0-6); HEMATOCRIT 34.8 % (35.0-45.0); HEMOGLOBIN 11.5 g/dl (12.0-16.0); LYMPHOCYTES # (AUTO) 0.7 X10'3 (1.1-4.8); LYMPHOCYTES % (AUTO) 5.8 % (21-51); MEAN CORPUSCULAR HEMOGLOBIN 30.3 PG (27.0-31.0); MEAN CORPUSCULAR VOLUME 91.8 FL (78-98); MEAN PLATELET VOLUME 8.6 FL (7.4-10.4); MONOCYTES # (AUTO) 0.9 X10'3 (0-0.9); MONOCYTES % (AUTO) 7.4 % (2-12); NEUTROPHILS # (AUTO) 10.9 X10'3 (1.8-7.7); NEUTROPHILS % (AUTO) 86.7 % (42-75); PLATELET COUNT 236 X10'3 (140-440); RED BLOOD COUNT 3.79 X10'6 (4.20-5.60); RED CELL DISTRIBUTION WIDTH 14.9 % (11.5-14.5); WHITE BLOOD COUNT 12.6 X10'3 (4.5-11.0)
--- NOTE | 2020-08-30 06:30 | NUR ---
Patient in room ORTHO 4012. I have received report from Carli JENNINGS and had the opportunity to ask questions and assume patient care.
--- NOTE | 2020-08-30 06:30 | NUR ---
Problems reprioritized. Patient report given, questions answered & plan of care reviewed with APRIL RN.
[2020-08-30 06:33] LABS: ALANINE AMINOTRANSFERASE 46 U/L (12-78); ALBUMIN 3.1 G/DL (3.4-5.0); ALBUMIN/GLOBULIN RATIO 0.8 (1.1-1.5); ALKALINE PHOSPHATASE 123 IU/L (46-116); ANION GAP 12 (8-16); ASPARTATE AMINO TRANSFERASE 39 U/L (10-37); BILIRUBIN,TOTAL 0.9 MG/DL (0.1-1.0); BLOOD UREA NITROGEN 7 MG/DL (7-18); BUN/CREATININE RATIO 8.3 (6.6-38.0); CALCIUM 8.5 MG/DL (8.5-10.1); CHLORIDE 105 MMOL/L (99-107); CREATININE 0.84 MG/DL (0.40-0.90); GLUCOSE 139 MG/DL (70-104); POTASSIUM 3.7 MMOL/L (3.5-5.1); SODIUM 138 MMOL/L (135-145); TOTAL CARBON DIOXIDE 21.3 MMOL/L (24-32); TOTAL PROTEIN 7.1 G/DL (6.4-8.2); eGFR 71 ML/MIN
[2020-08-30] MEDS: potassium CL 20mEq in D5-1/2NS 1,000 ML IV SCH ×4 (06:55→23:28)
[2020-08-30] MEDS: quetiapine 100mg tablet PO SCH ×3 (08:00→20:17)
[2020-08-30] MEDS ORDERED: venlafaxine XR 75mg capsule (Q24H) PO SCH (08:00)
[2020-08-30] MEDS: pantoprazole 40mg Tablet.DR PO SCH (08:01)
[2020-08-30] MEDS: topiramate 100mg tablet PO SCH ×2 (08:01→20:21)
[2020-08-30] MEDS: levoTHYROXINE 88mcg tablet PO SCH (08:01)
--- NOTE | 2020-08-30 11:00 | NUR ---
Witnessed medications administration change with Christy JENNINGS and Alvin VELAZQUEZ followed protocol orders of increase by a factor of 1.5 making the on demand dose of 0.3mg.
[2020-08-30] MEDS: ondansetron/PF 4mg/2ml inj IV PRN (14:37)
--- NOTE | 2020-08-30 18:57 | NUR ---
Problems reprioritized. Patient report given, questions answered & plan of care reviewed with Ketan JENNINGS.
--- NOTE | 2020-08-30 19:16 | NUR ---
Patient in room ORTHO 4012. I have received report from Armando JENNINGS and had the opportunity to ask questions and assume patient care.
[2020-08-30] MEDS: montelukast 10mg tablet PO SCH (20:17)
[2020-08-30] MEDS: venlafaxine XR 75mg capsule (Q24H) PO SCH (20:20)
[2020-08-30] MEDS: oxcarbazepine 150mg tablet PO SCH (20:21)
[2020-08-30] MEDS: albuterol 2.5 MG/3 ML nebule NEB PRN (22:56)
[2020-08-31] MEDS: HYDROmorphone/NS 1 mg/ml CADD 50 ML IV SCH ×12 (01:00→23:00)
[2020-08-31 06:00] VITALS: BP 116/63
--- NOTE | 2020-08-31 06:47 | NUR ---
Problems reprioritized. Patient report given, questions answered & plan of care reviewed with Melodie JENNINGS.
[2020-08-31 06:48] LABS: BASOPHILS # (AUTO) 0.1 X10'3 (0-0.2); BASOPHILS % (AUTO) 0.7 % (0-1); EOSINOPHILS # (AUTO) 0.1 X10'3 (0-0.9); EOSINOPHILS % (AUTO) 0.7 % (0-6); HEMATOCRIT 32.4 % (35.0-45.0); HEMOGLOBIN 10.7 g/dl (12.0-16.0); LYMPHOCYTES # (AUTO) 1.5 X10'3 (1.1-4.8); LYMPHOCYTES % (AUTO) 14.8 % (21-51); MEAN CORPUSCULAR HEMOGLOBIN 30.7 PG (27.0-31.0); MEAN PLATELET VOLUME 8.5 FL (7.4-10.4); MONOCYTES # (AUTO) 1.2 X10'3 (0-0.9); MONOCYTES % (AUTO) 11.4 % (2-12); NEUTROPHILS # (AUTO) 7.3 X10'3 (1.8-7.7); NEUTROPHILS % (AUTO) 72.4 % (42-75); PLATELET COUNT 218 X10'3 (140-440); RED BLOOD COUNT 3.49 X10'6 (4.20-5.60); RED CELL DISTRIBUTION WIDTH 15.3 % (11.5-14.5); WHITE BLOOD COUNT 10.1 X10'3 (4.5-11.0)
[2020-08-31 07:04] LABS: ALANINE AMINOTRANSFERASE 44 U/L (12-78); ALBUMIN 2.9 G/DL (3.4-5.0); ALBUMIN/GLOBULIN RATIO 0.7 (1.1-1.5); ANION GAP 7 (8-16); ASPARTATE AMINO TRANSFERASE 22 U/L (10-37); BILIRUBIN,TOTAL 1.4 MG/DL (0.1-1.0); BLOOD UREA NITROGEN 5 MG/DL (7-18); BUN/CREATININE RATIO 5.2 (6.6-38.0); CALCIUM 8.4 MG/DL (8.5-10.1); CHLORIDE 101 MMOL/L (99-107); CREATININE 0.96 MG/DL (0.40-0.90); GLUCOSE 138 MG/DL (70-104); POTASSIUM 3.5 MMOL/L (3.5-5.1); SODIUM 132 MMOL/L (135-145); TOTAL CARBON DIOXIDE 24.1 MMOL/L (24-32); TOTAL PROTEIN 7.1 G/DL (6.4-8.2); eGFR 61 ML/MIN
[2020-08-31 07:05] LABS: ALKALINE PHOSPHATASE 139 IU/L (46-116)
[2020-08-31] MEDS: levoTHYROXINE 88mcg tablet PO SCH (07:47)
[2020-08-31] MEDS: pantoprazole 40mg Tablet.DR PO SCH (07:48)
[2020-08-31] MEDS: quetiapine 100mg tablet PO SCH ×3 (07:48→22:51)
[2020-08-31] MEDS: topiramate 100mg tablet PO SCH ×2 (07:48→22:51)
[2020-08-31] MEDS: potassium CL 20mEq in D5-1/2NS 1,000 ML IV SCH ×3 (07:49→22:58)
[2020-08-31] MEDS: piperacillin/tazo 3.375gm/50ml 50 ML IV SCH ×3 (07:49→22:58)
[2020-08-31] MEDS: K and/or MAG REPLACEMENT MC SCH ×2 (07:54→19:59)
[2020-08-31 10:00] VITALS: BP 127/75
--- NOTE | 2020-08-31 11:24 | NUR ---
WOUND INFECTION EDUCATION PROVIDED BY WOUND CARE 1. Patient instructed to call their primary doctor, or go the ED immediately if any of the following symptoms occur: * Increased pain in wound * Increase in drainage from the wound * Redness in the skin surrounding the wound * Warmth in the skin surrounding the wound * Bleeding from the wound * Temperature of 101 or greater 2. If any of these occur while in the hospital tell a nurse immediately. WOUND VAC EDUCATION PROVIDED BY WOUND CARE 1. Patient instructed to call the Wound Center or their Home Health Agency immediately if: * They notice a change in the color or amount of the fluid in the canister. * Their wound looks more red than usual or has a foul smell. * The skin around their wound looks reddened or irritated. * The dressing feels loose or appears to be loose. * They experience any increase or changes in their pain. * The alarm will not turn off. 2. Patient instructed that they should not be disconnected from suction for more than 2 hours at a time. * If they are not able to get the suction back on, they need to remove the dressing and take all of the foam out of the wound. * Then moisten sterile gauze with normal saline and place on/in the wound. * Change the dressing once a day until arrangements have been made to replace the wound vac dressing. 3. Patient instructed to turn the wound vac machine OFF and call 911 or go to the ED immediately if their canister fills rapidly with blood. 4. If any of these occur while in the hospital tell a nurse immediately.
--- NOTE | 2020-08-31 14:00 | NUR ---
Patient walked 10 feet.
--- NOTE | 2020-08-31 14:29 | NUR ---
PAGER ID: [phone] MESSAGE: [phone] Basil Bejarano- patient would like an antacid for acid reflux. Vero [id number]
[2020-08-31] MEDS: ondansetron/PF 4mg/2ml inj IV PRN (15:28)
--- NOTE | 2020-08-31 17:10 | NUR ---
PAGER ID: [phone] MESSAGE: Karly [email or web address] Carlee Prescott- she is asking for Maalox for indigestion, no order available, can we order it please Addendum: 08/31/20 at 1711 by Shawna Ricci RN call back from gave order for andrewsx
[2020-08-31] MEDS ORDERED: mag hydrox/Alum hydrox/simeth 30ml oral suspension PO PRN (17:15)
[2020-08-31 18:00] VITALS: BP 137/74
--- NOTE | 2020-08-31 18:38 | NUR ---
Problems reprioritized. Patient report given, questions answered & plan of care reviewed with Zhen JENNINGS.
--- NOTE | 2020-08-31 18:45 | NUR ---
ambulated in hallway 30 feet. will encourage to walk q4 hours. written on white board. pt agreeable to activity. only drinking applejuice. belching, no flatus. positive Bowel sounds
[2020-08-31] MEDS: normal saline 1000ml 1,000 ML IV SCH (19:40)
[2020-08-31] MEDS: albuterol 2.5 MG/3 ML nebule NEB PRN (19:52)
[2020-08-31] MEDS ORDERED: magnesium hydroxide 30ml (MOM) UD suspension PO ONE (21:10)
--- NOTE | 2020-08-31 21:10 | NUR ---
dr. Davis talked with patient. "when you poop you can go home". orders received.
[2020-08-31] MEDS: venlafaxine XR 75mg capsule (Q24H) PO SCH (22:51)
[2020-08-31] MEDS: calcium carbonate 500mg chew tablet PO SCH (22:51)
[2020-08-31] MEDS: montelukast 10mg tablet PO SCH (22:51)
[2020-08-31] MEDS: lactobacillus rhamnosus 10,000 MMU CELLS/CAPSULE PO SCH (22:51)
[2020-08-31] MEDS: oxcarbazepine 150mg tablet PO SCH (22:51)
[2020-08-31 23:00] VITALS: BP 144/80
[2020-09-01] MEDS: HYDROmorphone/NS 1 mg/ml CADD 50 ML IV SCH ×5 (01:00→09:00)
--- NOTE | 2020-09-01 03:13 | NUR ---
pt refusing to eat b/c of bipap. "I just want the healthy shakes so I can have something on my stomach" Addendum: 09/01/20 at 0313 by Baltazar Julian RN omit note. wrong patient
--- NOTE | 2020-09-01 03:14 | NUR ---
pt tolerating applejuice and ice. c/o dry mouth. explained that was from dilaudid. encouraged pt to wean off of dilaudid when she can
--- NOTE | 2020-09-01 05:53 | NUR ---
reported to days. noted pt needs to wean off cadd and ambulate q4 hours. pt states "it's easier now that I've gotten up a couple times". pt anxious to go home. ramsey to come out this am.
[2020-09-01 06:00] VITALS: BP 141/60
[2020-09-01 06:44] LABS: BASOPHILS % (AUTO) 0.7 % (0-1); EOSINOPHILS # (AUTO) 0.4 X10'3 (0-0.9); EOSINOPHILS % (AUTO) 6.1 % (0-6); HEMATOCRIT 28.3 % (35.0-45.0); HEMOGLOBIN 9.6 g/dl (12.0-16.0); LYMPHOCYTES # (AUTO) 1.1 X10'3 (1.1-4.8); LYMPHOCYTES % (AUTO) 16.2 % (21-51); MEAN CORPUSCULAR HEMOGLOBIN 31.2 PG (27.0-31.0); MEAN CORPUSCULAR VOLUME 91.8 FL (78-98); MEAN PLATELET VOLUME 8.6 FL (7.4-10.4); MONOCYTES # (AUTO) 0.8 X10'3 (0-0.9); MONOCYTES % (AUTO) 11.6 % (2-12); NEUTROPHILS # (AUTO) 4.4 X10'3 (1.8-7.7); NEUTROPHILS % (AUTO) 65.4 % (42-75); PLATELET COUNT 219 X10'3 (140-440); RED BLOOD COUNT 3.09 X10'6 (4.20-5.60); WHITE BLOOD COUNT 6.7 X10'3 (4.5-11.0)
[2020-09-01 07:05] LABS: ALANINE AMINOTRANSFERASE 35 U/L (12-78); ALBUMIN 2.6 G/DL (3.4-5.0); ALBUMIN/GLOBULIN RATIO 0.6 (1.1-1.5); ALKALINE PHOSPHATASE 130 IU/L (46-116); ANION GAP 5 (8-16); ASPARTATE AMINO TRANSFERASE 16 U/L (10-37); BILIRUBIN,TOTAL 0.7 MG/DL (0.1-1.0); BLOOD UREA NITROGEN 4 MG/DL (7-18); BUN/CREATININE RATIO 5.1 (6.6-38.0); CALCIUM 8.4 MG/DL (8.5-10.1); CHLORIDE 101 MMOL/L (99-107); CREATININE 0.79 MG/DL (0.40-0.90); GLUCOSE 135 MG/DL (70-104); POTASSIUM 3.4 MMOL/L (3.5-5.1); SODIUM 133 MMOL/L (135-145); TOTAL CARBON DIOXIDE 27.2 MMOL/L (24-32); TOTAL PROTEIN 6.9 G/DL (6.4-8.2); eGFR 77 ML/MIN
[2020-09-01 07:19] LABS: MAGNESIUM 1.9 MG/DL (1.5-2.4)
[2020-09-01] MEDS: calcium carbonate 500mg chew tablet PO SCH ×3 (07:56→17:36)
[2020-09-01] MEDS: potassium CL 20mEq in D5-1/2NS 1,000 ML IV SCH ×2 (07:57→17:36)
[2020-09-01] MEDS: K and/or MAG REPLACEMENT MC SCH ×2 (08:00→20:00)
[2020-09-01] MEDS: topiramate 100mg tablet PO SCH ×2 (08:51→20:33)
[2020-09-01] MEDS: piperacillin/tazo 3.375gm/50ml 50 ML IV SCH ×2 (08:51→17:36)
[2020-09-01] MEDS: levoTHYROXINE 88mcg tablet PO SCH (08:51)
[2020-09-01] MEDS: lactobacillus rhamnosus 10,000 MMU CELLS/CAPSULE PO SCH ×2 (08:51→20:32)
[2020-09-01] MEDS: quetiapine 100mg tablet PO SCH ×3 (08:51→20:32)
[2020-09-01] MEDS: pantoprazole 40mg Tablet.DR PO SCH (08:51)
[2020-09-01 10:00] VITALS: BP 141/80
--- NOTE | 2020-09-01 13:41 | NUR ---
PAGER ID: [phone] MESSAGE: Karly [phone]- Carlee Prescott- I want to DC the CADD and start PO pain meds. I would like to try [place] 10, 1-2 Q4? Please advise, thanks
[2020-09-01] MEDS: HYDROcodone/acetaminophen 10/325mg tab PO PRN ×2 (14:04→20:33)
[2020-09-01 18:00] VITALS: BP 128/73
--- NOTE | 2020-09-01 18:19 | NUR ---
Patient in room ORTHO 4012. I have received report from Karly JENNINGS and had the opportunity to ask questions and assume patient care.
[2020-09-01] MEDS: venlafaxine XR 75mg capsule (Q24H) PO SCH (20:32)
[2020-09-01] MEDS: montelukast 10mg tablet PO SCH (20:32)
[2020-09-01] MEDS: oxcarbazepine 150mg tablet PO SCH (20:32)
[2020-09-01 22:30] VITALS: BP 104/56
--- NOTE | 2020-09-02 00:41 | NUR ---
The patients IV infiltrated in the middle of the last Zosyn dose, it took several tries to restart the IV. The patient dose completed about 2300. Spoke with the pharmacist and was advised to hold the midnight dose of Zosyn.
[2020-09-02] MEDS: HYDROcodone/acetaminophen 10/325mg tab PO PRN ×3 (04:40→13:34)
[2020-09-02] MEDS: ondansetron/PF 4mg/2ml inj IV PRN (04:40)
--- NOTE | 2020-09-02 06:23 | NUR ---
Problems reprioritized. Patient report given, questions answered & plan of care reviewed with Karly JENNINGS.
[2020-09-02 06:28] LABS: ALANINE AMINOTRANSFERASE 34 U/L (12-78); ALBUMIN 2.6 G/DL (3.4-5.0); ALBUMIN/GLOBULIN RATIO 0.6 (1.1-1.5); ALKALINE PHOSPHATASE 128 IU/L (46-116); ASPARTATE AMINO TRANSFERASE 17 U/L (10-37); BILIRUBIN,TOTAL 0.6 MG/DL (0.1-1.0); BLOOD UREA NITROGEN 5 MG/DL (7-18); BUN/CREATININE RATIO 6.3 (6.6-38.0); CALCIUM 8.4 MG/DL (8.5-10.1); GLUCOSE 109 MG/DL (70-104); TOTAL CARBON DIOXIDE 27.4 MMOL/L (24-32); TOTAL PROTEIN 6.8 G/DL (6.4-8.2); eGFR 76 ML/MIN
[2020-09-02 06:29] LABS: EOSINOPHILS # (AUTO) 0.6 X10'3 (0-0.9); EOSINOPHILS % (AUTO) 12.9 % (0-6); HEMATOCRIT 27.5 % (35.0-45.0); HEMOGLOBIN 9.4 g/dl (12.0-16.0); LYMPHOCYTES % (AUTO) 21.5 % (21-51); MEAN CORPUSCULAR HEMOGLOBIN 31.6 PG (27.0-31.0); MEAN CORPUSCULAR HGB CONC 34.2 g/dL (33.0-36.5); MEAN CORPUSCULAR VOLUME 92.6 FL (78-98); MEAN PLATELET VOLUME 8.5 FL (7.4-10.4); MONOCYTES # (AUTO) 0.6 X10'3 (0-0.9); NEUTROPHILS # (AUTO) 2.5 X10'3 (1.8-7.7); NEUTROPHILS % (AUTO) 52.6 % (42-75); PLATELET COUNT 247 X10'3 (140-440); RED BLOOD COUNT 2.97 X10'6 (4.20-5.60); RED CELL DISTRIBUTION WIDTH 15.3 % (11.5-14.5); WHITE BLOOD COUNT 4.8 X10'3 (4.5-11.0)
[2020-09-02 06:48] LABS: ANION GAP 8 (8-16); CHLORIDE 102 MMOL/L (99-107); SODIUM 137 MMOL/L (135-145)
--- NOTE | 2020-09-02 07:20 | NUR ---
PAGER ID: [phone] MESSAGE: Karly [phone] Carlee Prescott- satya K 3.0, protocol fell off of emar. IVF has 20 meq in it. Please advise
[2020-09-02] MEDS: topiramate 100mg tablet PO SCH (08:09)
[2020-09-02] MEDS: lactobacillus rhamnosus 10,000 MMU CELLS/CAPSULE PO SCH (08:09)
[2020-09-02] MEDS: calcium carbonate 500mg chew tablet PO SCH ×2 (08:09→12:46)
[2020-09-02] MEDS: pantoprazole 40mg Tablet.DR PO SCH (08:09)
[2020-09-02] MEDS: levoTHYROXINE 88mcg tablet PO SCH (08:09)
[2020-09-02] MEDS: quetiapine 100mg tablet PO SCH ×2 (08:44→12:46)
[2020-09-02] MEDS: piperacillin/tazo 3.375gm/50ml 50 ML IV SCH ×2 (08:45)
[2020-09-02] MEDS ORDERED: potassium Cl 20 mEq SR tablet PO PRN (08:50)
[2020-09-02] MEDS ORDERED: magnesium 4gm in 100ml NS 100 ML IV PRN (08:50)
[2020-09-02] MEDS ORDERED: potassium CL 10mEq/100ml bag 100 ML IV PRN (08:50)
[2020-09-02] MEDS ORDERED: magnesium Cl slow-release 64mg tablet PO PRN (08:50)
[2020-09-02] MEDS: K and/or MAG REPLACEMENT MC SCH (08:55)
[2020-09-02] MEDS: potassium Cl 20 mEq SR tablet PO PRN ×2 (09:26→13:34)
[2020-09-02 10:01] VITALS: BP 144/77
[2020-09-02 12:16] VITALS: BP 134/68
--- NOTE | 2020-09-02 15:20 | NUR ---
spoke to Dr Gale- he states no antibiotics needed on DC, pt is to follow up in his office at 10 am on Saturday. Pt home wound vac and home health has been arranged. Will ask hospitalist for small supply of pain meds
--- NOTE | 2020-09-02 15:27 | NUR ---
PAGER ID: [phone] MESSAGE: Karly [phone] Carlee Prescott- please call me, thank you
--- NOTE | 2020-09-02 15:58 | NUR ---
PAGER ID: [phone] MESSAGE: Karly [phone] bigg Gracia- I tried to get Dr Lau to write it, he said to call his office but they are closed, I could have him come up here after surgery to write it but it will be much later. Can you write a small supply
[2020-09-02] MEDS ORDERED: K and/or MAG REPLACEMENT MC SCH (20:00)
[2020-09-02] MEDS ORDERED: enoxaparin 40mg/0.4ml syringe SUBCUT SCH (20:00)
== END 2020-09-02 17:19 | disposition home or self-care (01) | DRG 330 ==
LOC: ER 11:48 → ED HOLD 19:40 → ORTHO 4S 08-30 00:13
PROVIDERS: ADMIT Internal Medicine; ATTEND Internal Medicine
PROC: 0WUF0KZ Supplement Abdominal Wall with Nonautologous Tissue Substitute, Open Approach (ICD-10-PCS; 2020-08-29)
PROC: 0DBL0ZZ Excision of Transverse Colon, Open Approach (ICD-10-PCS; principal; 2020-08-29 20:06)
PROC: 5A09357 Assistance with Respiratory Ventilation, Less than 24 Consecutive Hours, Continuous Positive Airway Pressure (ICD-10-PCS; 2020-08-30)
PROC: 5A09357 Assistance with Respiratory Ventilation, Less than 24 Consecutive Hours, Continuous Positive Airway Pressure (ICD-10-PCS; 2020-08-31)
PROC: 5A09357 Assistance with Respiratory Ventilation, Less than 24 Consecutive Hours, Continuous Positive Airway Pressure (ICD-10-PCS; 2020-09-01)
PROC: 5A09357 Assistance with Respiratory Ventilation, Less than 24 Consecutive Hours, Continuous Positive Airway Pressure (ICD-10-PCS; 2020-09-02)
DX: K43.0 Incisional hernia with obstruction, without gangrene (principal); K55.9 Vascular disorder of intestine, unspecified; Z68.41 Body mass index [BMI] 40.0-44.9, adult; E03.9 Hypothyroidism, unspecified; E66.01 Morbid (severe) obesity due to excess calories; F31.9 Bipolar disorder, unspecified; J44.9 Chronic obstructive pulmonary disease, unspecified; K66.0 Peritoneal adhesions (postprocedural) (postinfection); Z79.890 Hormone replacement therapy; Z87.891 Personal history of nicotine dependence
CPT/HCPCS: 36415; 74176; 80053; 83605; 83690; 83735; 84145; 84443; 85025; 87040; 87081; 88302; 88307; 93005; 94640; 94760; 96374; 99285; A4618; A6550; A7000; C1758; G0378; J0694; J0780; J1170; J2175; J2250; J2270; J2405; J2543; J2704; J2710; J3010; J3480; J3490; J7030; J7120; Q9963

== ENCOUNTER 2020-09-06 08:41 | Outpatient (CLI) | payer MEDICARE, OTHER ==
[~2020-09-06 08:41] MED LIST changes: -DICY10CA14 PO; -FLUT1DIS4 INH; +HYOS-26 PO; -IPRA3AMP9 IH; -LACT1CAP26 PO; -LACT30003 PO; +LEVO88TA39 PO; +PANT-47 PO; +TOP100T PO
[2020-09-06] MEDS ORDERED: LIDOcaine 2% 5ml jelly ONE ×2 (09:21)
== END 2020-09-06 23:59 | disposition home or self-care (01) ==
LOC: WOUND CARE 08:41 → EDSTATUS 09:00 → WOUND CARE 23:59
PROVIDERS: ATTEND Nurse Practitioner
DX: T81.32XA Disruption of internal operation (surgical) wound, not elsewhere classified, initial encounter (principal); L98.493 Non-pressure chronic ulcer of skin of other sites with necrosis of muscle; J44.9 Chronic obstructive pulmonary disease, unspecified; E03.8 Other specified hypothyroidism; K43.2 Incisional hernia without obstruction or gangrene; E66.01 Morbid (severe) obesity due to excess calories; K66.0 Peritoneal adhesions (postprocedural) (postinfection); K55.9 Vascular disorder of intestine, unspecified; K42.9 Umbilical hernia without obstruction or gangrene; F41.9 Anxiety disorder, unspecified; F31.9 Bipolar disorder, unspecified; Z79.890 Hormone replacement therapy; Z68.41 Body mass index [BMI] 40.0-44.9, adult; Z87.891 Personal history of nicotine dependence; Z79.899 Other long term (current) drug therapy; Z90.49 Acquired absence of other specified parts of digestive tract; Y83.8 Other surgical procedures as the cause of abnormal reaction of the patient, or of later complication, without mention of misadventure at the time of the procedure; Y92.234 Operating room of hospital as the place of occurrence of the external cause
CPT/HCPCS: 11043; 11046

== ENCOUNTER 2020-09-12 11:40 | Outpatient (CLI) | payer MEDICARE, OTHER ==
[2020-09-12] MEDS ORDERED: LIDOcaine 2% 5ml jelly ONE (12:08)
[2020-09-13] MEDS ORDERED: SULF1TAB49 PO (23:51)
== END 2020-09-12 23:59 | disposition home or self-care (01) ==
LOC: WOUND CARE 11:40
PROVIDERS: ATTEND Nurse Practitioner
DX: T81.32XD Disruption of internal operation (surgical) wound, not elsewhere classified, subsequent encounter (principal); L98.492 Non-pressure chronic ulcer of skin of other sites with fat layer exposed; J44.9 Chronic obstructive pulmonary disease, unspecified; E03.8 Other specified hypothyroidism; K43.2 Incisional hernia without obstruction or gangrene; E66.01 Morbid (severe) obesity due to excess calories; K66.0 Peritoneal adhesions (postprocedural) (postinfection); K55.9 Vascular disorder of intestine, unspecified; K42.9 Umbilical hernia without obstruction or gangrene; F41.9 Anxiety disorder, unspecified; F31.9 Bipolar disorder, unspecified; Z79.890 Hormone replacement therapy; Z68.41 Body mass index [BMI] 40.0-44.9, adult; Z87.891 Personal history of nicotine dependence; Z79.899 Other long term (current) drug therapy; Z90.49 Acquired absence of other specified parts of digestive tract; Y83.8 Other surgical procedures as the cause of abnormal reaction of the patient, or of later complication, without mention of misadventure at the time of the procedure
CPT/HCPCS: 97597; 97598

== ENCOUNTER 2020-09-13 20:14 | Emergency (ER) | payer MEDICARE, OTHER ==
[~2020-09-13] VITALS: Ht 177.8 cm; Wt 129.6 kg
[2020-09-13] MEDS ORDERED: morphine 4 MG/ML inj SYRINge IV PRN (21:15)
[2020-09-13] MEDS ORDERED: normal saline 1000ML IV soln IVB ONE (21:15)
[2020-09-13] MEDS ORDERED: ondansetron/PF 4mg/2ml inj IV ONE (21:15)
[2020-09-13 21:48] LABS: BASOPHILS # (AUTO) 0.1 X10'3 (0-0.2); BASOPHILS % (AUTO) 0.8 % (0-1); EOSINOPHILS # (AUTO) 0.1 X10'3 (0-0.9); HEMATOCRIT 33.9 % (35.0-45.0); HEMOGLOBIN 11.5 g/dl (12.0-16.0); LYMPHOCYTES % (AUTO) 11.4 % (21-51); MEAN CORPUSCULAR HEMOGLOBIN 31.3 PG (27.0-31.0); MEAN PLATELET VOLUME 8.5 FL (7.4-10.4); MONOCYTES # (AUTO) 0.9 X10'3 (0-0.9); MONOCYTES % (AUTO) 10.1 % (2-12); NEUTROPHILS # (AUTO) 6.7 X10'3 (1.8-7.7); NEUTROPHILS % (AUTO) 76.7 % (42-75); PLATELET COUNT 420 X10'3 (140-440); RED BLOOD COUNT 3.69 X10'6 (4.20-5.60); RED CELL DISTRIBUTION WIDTH 14.8 % (11.5-14.5); WHITE BLOOD COUNT 8.8 X10'3 (4.5-11.0)
[2020-09-13 22:00] LABS: ALANINE AMINOTRANSFERASE 35 U/L (12-78); ALBUMIN 3.3 G/DL (3.4-5.0); ALBUMIN/GLOBULIN RATIO 0.7 (1.1-1.5); ALKALINE PHOSPHATASE 163 IU/L (46-116); ANION GAP 13 (8-16); ASPARTATE AMINO TRANSFERASE 41 U/L (10-37); BILIRUBIN,TOTAL 0.7 MG/DL (0.1-1.0); BLOOD UREA NITROGEN 7 MG/DL (7-18); BUN/CREATININE RATIO 7.9 (6.6-38.0); CHLORIDE 101 MMOL/L (99-107); CREATININE 0.89 MG/DL (0.40-0.90); GLUCOSE 123 MG/DL (70-104); LIPASE 88 U/L (73-393); MAGNESIUM 1.9 MG/DL (1.5-2.4); POTASSIUM 3.2 MMOL/L (3.5-5.1); SODIUM 134 MMOL/L (135-145); TOTAL CARBON DIOXIDE 20.3 MMOL/L (24-32); TOTAL PROTEIN 7.9 G/DL (6.4-8.2); eGFR 67 ML/MIN
[2020-09-13 22:53] LABS: CLARITY,URINE CLEAR (Clear); COLOR,URINE YELLOW (Yellow); GLUCOSE, URINE NEGATIVE (Neg); KETONES,URINE 15 mg/dl (Neg); LEUKOCYTE ESTERASE ,URINE MODERATE (Neg); NITRITES, URINE NEGATIVE (Neg); OCCULT BLOOD,URINE NEGATIVE (Neg); PH,URINE 6.5 (4.8-8.0); PROTEIN,URINE NEGATIVE (Neg)
[2020-09-13 22:54] LABS: UA COLLECTION TYPE CLN CATCH MIDSTREAM
[2020-09-13 23:11] LABS: WBC,URINE 30-50 /HPF (0-4)
[2020-09-13 23:12] LABS: BACTERIA,URINE 3+ /HPF (Neg); MUCUS STRANDS FEW /LPF (Neg); RBC,URINE 0-2 /HPF (0-2); SQUAMOUS EPITHELIAL CELL,UR MODERATE /LPF (FEW)
[2020-09-13] MEDS ORDERED: sulfamethoxazole/trimethoprim DS (800/160mg) tablet PO ONE (23:40)
[2020-09-13] MEDS ORDERED: SULF1TAB49 PO (23:51)
[2020-09-14 00:20] VITALS: BP 121/74
== END 2020-09-14 00:22 | disposition home or self-care (01) ==
LOC: ER 20:14
DX: R10.11 Right upper quadrant pain (principal); R50.9 Fever, unspecified; Z20.828 Contact with and (suspected) exposure to other viral communicable diseases; J45.909 Unspecified asthma, uncomplicated; F41.9 Anxiety disorder, unspecified; F31.9 Bipolar disorder, unspecified; Z90.49 Acquired absence of other specified parts of digestive tract; Z98.890 Other specified postprocedural states; Z79.2 Long term (current) use of antibiotics; Z79.899 Other long term (current) drug therapy
CPT/HCPCS: 36415; 71045; 74176; 80053; 81001; 83605; 83690; 83735; 84145; 85025; 87040; 87088; 87635; 93005; 96361; 96374; 96375; 99285; J2270; J2405; J7030; 87077; 87186

== ENCOUNTER 2020-09-19 11:25 | Outpatient (CLI) | payer MEDICARE, OTHER ==
[~2020-09-19 11:25] MED LIST changes: -MONT10TA26 PO; +MONT10TA97 PO; +SULF1TAB49 PO
[2020-09-19] MEDS ORDERED: LIDOcaine 2% 5ml jelly ONE (12:56)
== END 2020-09-19 23:59 | disposition home or self-care (01) ==
LOC: WOUND CARE 11:25
PROVIDERS: ATTEND Nurse Practitioner Family
DX: T81.32XD Disruption of internal operation (surgical) wound, not elsewhere classified, subsequent encounter (principal); L98.492 Non-pressure chronic ulcer of skin of other sites with fat layer exposed; J44.9 Chronic obstructive pulmonary disease, unspecified; E03.8 Other specified hypothyroidism; K43.2 Incisional hernia without obstruction or gangrene; E66.01 Morbid (severe) obesity due to excess calories; K66.0 Peritoneal adhesions (postprocedural) (postinfection); K55.9 Vascular disorder of intestine, unspecified; K42.9 Umbilical hernia without obstruction or gangrene; F41.9 Anxiety disorder, unspecified; F31.9 Bipolar disorder, unspecified; Z79.890 Hormone replacement therapy; Z68.41 Body mass index [BMI] 40.0-44.9, adult; Z87.891 Personal history of nicotine dependence; Z79.899 Other long term (current) drug therapy; Z90.49 Acquired absence of other specified parts of digestive tract; Y83.8 Other surgical procedures as the cause of abnormal reaction of the patient, or of later complication, without mention of misadventure at the time of the procedure
CPT/HCPCS: 97597; 97598

== ENCOUNTER 2020-09-26 11:54 | Outpatient (CLI) | payer MEDICARE, OTHER ==
[~2020-09-26 11:54] MED LIST changes: +MONT10TA26 PO; -MONT10TA97 PO; -SULF1TAB49 PO
[2020-09-26] MEDS ORDERED: LIDOcaine 2% 5ml jelly ONE (12:36)
== END 2020-09-26 23:59 | disposition home or self-care (01) ==
LOC: WOUND CARE 11:54
PROVIDERS: ATTEND Nurse Practitioner Family
DX: T81.32XD Disruption of internal operation (surgical) wound, not elsewhere classified, subsequent encounter (principal); L98.492 Non-pressure chronic ulcer of skin of other sites with fat layer exposed; J44.9 Chronic obstructive pulmonary disease, unspecified; E03.8 Other specified hypothyroidism; K43.2 Incisional hernia without obstruction or gangrene; E66.01 Morbid (severe) obesity due to excess calories; K66.0 Peritoneal adhesions (postprocedural) (postinfection); K55.9 Vascular disorder of intestine, unspecified; K42.9 Umbilical hernia without obstruction or gangrene; F41.9 Anxiety disorder, unspecified; F31.9 Bipolar disorder, unspecified; Z79.890 Hormone replacement therapy; Z68.41 Body mass index [BMI] 40.0-44.9, adult; Z87.891 Personal history of nicotine dependence; Z79.899 Other long term (current) drug therapy; Z90.49 Acquired absence of other specified parts of digestive tract; Y83.8 Other surgical procedures as the cause of abnormal reaction of the patient, or of later complication, without mention of misadventure at the time of the procedure
CPT/HCPCS: 97597

== ENCOUNTER 2020-10-03 10:58 | Outpatient (CLI) | payer MEDICARE, OTHER ==
[2020-10-03] MEDS ORDERED: LIDOcaine 2% 5ml jelly ONE (11:21)
== END 2020-10-03 23:59 | disposition home or self-care (01) ==
LOC: WOUND CARE 10:58
PROVIDERS: ATTEND Nurse Practitioner Family
DX: T81.32XD Disruption of internal operation (surgical) wound, not elsewhere classified, subsequent encounter (principal); L98.492 Non-pressure chronic ulcer of skin of other sites with fat layer exposed; J44.9 Chronic obstructive pulmonary disease, unspecified; E03.8 Other specified hypothyroidism; K43.2 Incisional hernia without obstruction or gangrene; E66.01 Morbid (severe) obesity due to excess calories; K66.0 Peritoneal adhesions (postprocedural) (postinfection); K55.9 Vascular disorder of intestine, unspecified; K42.9 Umbilical hernia without obstruction or gangrene; F41.9 Anxiety disorder, unspecified; F31.9 Bipolar disorder, unspecified; Z79.2 Long term (current) use of antibiotics; Z79.890 Hormone replacement therapy; Z68.41 Body mass index [BMI] 40.0-44.9, adult; Z98.890 Other specified postprocedural states; Z87.891 Personal history of nicotine dependence; Z79.899 Other long term (current) drug therapy; Z90.49 Acquired absence of other specified parts of digestive tract; Y83.8 Other surgical procedures as the cause of abnormal reaction of the patient, or of later complication, without mention of misadventure at the time of the procedure
CPT/HCPCS: 97597

== ENCOUNTER 2020-10-10 11:55 | Outpatient (CLI) | payer MEDICARE, OTHER ==
[~2020-10-10 11:55] MED LIST changes: -MONT10TA26 PO; +MONT10TA97 PO
[2020-10-10] MEDS ORDERED: LIDOcaine 2% 5ml jelly ONE (12:59)
== END 2020-10-10 23:59 | disposition home or self-care (01) ==
LOC: WOUND CARE 11:55
PROVIDERS: ATTEND Nurse Practitioner Family
DX: T81.32XD Disruption of internal operation (surgical) wound, not elsewhere classified, subsequent encounter (principal); L98.492 Non-pressure chronic ulcer of skin of other sites with fat layer exposed; J44.9 Chronic obstructive pulmonary disease, unspecified; E03.8 Other specified hypothyroidism; K43.2 Incisional hernia without obstruction or gangrene; E66.01 Morbid (severe) obesity due to excess calories; K66.0 Peritoneal adhesions (postprocedural) (postinfection); K55.9 Vascular disorder of intestine, unspecified; K42.9 Umbilical hernia without obstruction or gangrene; F41.9 Anxiety disorder, unspecified; F31.9 Bipolar disorder, unspecified; Z79.2 Long term (current) use of antibiotics; Z79.890 Hormone replacement therapy; Z68.41 Body mass index [BMI] 40.0-44.9, adult; Z98.890 Other specified postprocedural states; Z87.891 Personal history of nicotine dependence; Z79.899 Other long term (current) drug therapy; Z90.49 Acquired absence of other specified parts of digestive tract; Y83.8 Other surgical procedures as the cause of abnormal reaction of the patient, or of later complication, without mention of misadventure at the time of the procedure
CPT/HCPCS: 97597

== ENCOUNTER 2020-10-17 11:40 | Outpatient (CLI) | payer MEDICARE, OTHER ==
[~2020-10-17 11:40] MED LIST changes: +SULF1TAB49 PO
[2020-10-17] MEDS ORDERED: LIDOcaine 2% 5ml jelly ONE (12:07)
== END 2020-10-17 23:59 | disposition home or self-care (01) ==
LOC: WOUND CARE 11:40
PROVIDERS: ATTEND Nurse Practitioner Family
DX: T81.32XD Disruption of internal operation (surgical) wound, not elsewhere classified, subsequent encounter (principal); L98.492 Non-pressure chronic ulcer of skin of other sites with fat layer exposed; J44.9 Chronic obstructive pulmonary disease, unspecified; E03.8 Other specified hypothyroidism; K43.2 Incisional hernia without obstruction or gangrene; E66.01 Morbid (severe) obesity due to excess calories; K66.0 Peritoneal adhesions (postprocedural) (postinfection); K55.9 Vascular disorder of intestine, unspecified; K42.9 Umbilical hernia without obstruction or gangrene; F41.9 Anxiety disorder, unspecified; F31.9 Bipolar disorder, unspecified; Z79.2 Long term (current) use of antibiotics; Z79.890 Hormone replacement therapy; Z68.41 Body mass index [BMI] 40.0-44.9, adult; Z98.890 Other specified postprocedural states; Z87.891 Personal history of nicotine dependence; Z79.899 Other long term (current) drug therapy; Z90.49 Acquired absence of other specified parts of digestive tract; Y83.8 Other surgical procedures as the cause of abnormal reaction of the patient, or of later complication, without mention of misadventure at the time of the procedure
CPT/HCPCS: 97597

== ENCOUNTER 2020-10-24 11:11 | Outpatient (CLI) | payer MEDICARE, MEDICAID ==
[~2020-10-24 11:11] MED LIST changes: -SULF1TAB49 PO
[2020-10-24] MEDS ORDERED: LIDOcaine 2% 5ml jelly ONE (12:30)
== END 2020-10-24 23:59 | disposition home or self-care (01) ==
LOC: WOUND CARE 11:11
PROVIDERS: ATTEND Nurse Practitioner
DX: T81.32XD Disruption of internal operation (surgical) wound, not elsewhere classified, subsequent encounter (principal); L98.492 Non-pressure chronic ulcer of skin of other sites with fat layer exposed; J44.9 Chronic obstructive pulmonary disease, unspecified; E03.8 Other specified hypothyroidism; K43.2 Incisional hernia without obstruction or gangrene; E66.01 Morbid (severe) obesity due to excess calories; K66.0 Peritoneal adhesions (postprocedural) (postinfection); K55.9 Vascular disorder of intestine, unspecified; K42.9 Umbilical hernia without obstruction or gangrene; F41.9 Anxiety disorder, unspecified; F31.9 Bipolar disorder, unspecified; Z79.2 Long term (current) use of antibiotics; Z79.890 Hormone replacement therapy; Z68.41 Body mass index [BMI] 40.0-44.9, adult; Z98.890 Other specified postprocedural states; Z87.891 Personal history of nicotine dependence; Z79.899 Other long term (current) drug therapy; Z90.49 Acquired absence of other specified parts of digestive tract; Y83.8 Other surgical procedures as the cause of abnormal reaction of the patient, or of later complication, without mention of misadventure at the time of the procedure
CPT/HCPCS: G0463

== ENCOUNTER 2020-10-31 10:54 | Outpatient (CLI) | payer MEDICARE, OTHER ==
[2020-10-31] MEDS ORDERED: LIDOcaine 2% 5ml jelly ONE (11:21)
== END 2020-10-31 23:59 | disposition home or self-care (01) ==
LOC: WOUND CARE 10:54
PROVIDERS: ATTEND Nurse Practitioner Family
DX: T81.32XD Disruption of internal operation (surgical) wound, not elsewhere classified, subsequent encounter (principal); L98.492 Non-pressure chronic ulcer of skin of other sites with fat layer exposed; J44.9 Chronic obstructive pulmonary disease, unspecified; E03.8 Other specified hypothyroidism; K43.2 Incisional hernia without obstruction or gangrene; E66.01 Morbid (severe) obesity due to excess calories; K66.0 Peritoneal adhesions (postprocedural) (postinfection); K55.9 Vascular disorder of intestine, unspecified; K42.9 Umbilical hernia without obstruction or gangrene; F41.9 Anxiety disorder, unspecified; F31.9 Bipolar disorder, unspecified; Z79.2 Long term (current) use of antibiotics; Z79.890 Hormone replacement therapy; Z68.41 Body mass index [BMI] 40.0-44.9, adult; Z98.890 Other specified postprocedural states; Z87.891 Personal history of nicotine dependence; Z79.899 Other long term (current) drug therapy; Z90.49 Acquired absence of other specified parts of digestive tract; Y83.8 Other surgical procedures as the cause of abnormal reaction of the patient, or of later complication, without mention of misadventure at the time of the procedure
CPT/HCPCS: 97597

== ENCOUNTER 2020-11-07 11:13 | Outpatient (CLI) | payer MEDICARE, OTHER ==
[~2020-11-07 11:13] MED LIST changes: +SULF1TAB49 PO
== END 2020-11-07 23:59 | disposition home or self-care (01) ==
LOC: WOUND CARE 11:13
PROVIDERS: ATTEND Nurse Practitioner Family
DX: T81.32XD Disruption of internal operation (surgical) wound, not elsewhere classified, subsequent encounter (principal); L98.492 Non-pressure chronic ulcer of skin of other sites with fat layer exposed; J44.9 Chronic obstructive pulmonary disease, unspecified; E03.8 Other specified hypothyroidism; K43.2 Incisional hernia without obstruction or gangrene; E66.01 Morbid (severe) obesity due to excess calories; K66.0 Peritoneal adhesions (postprocedural) (postinfection); K55.9 Vascular disorder of intestine, unspecified; K42.9 Umbilical hernia without obstruction or gangrene; F41.9 Anxiety disorder, unspecified; F31.9 Bipolar disorder, unspecified; Z79.2 Long term (current) use of antibiotics; Z79.890 Hormone replacement therapy; Z68.41 Body mass index [BMI] 40.0-44.9, adult; Z98.890 Other specified postprocedural states; Z87.891 Personal history of nicotine dependence; Z79.899 Other long term (current) drug therapy; Z90.49 Acquired absence of other specified parts of digestive tract; Y83.8 Other surgical procedures as the cause of abnormal reaction of the patient, or of later complication, without mention of misadventure at the time of the procedure
CPT/HCPCS: G0463

== ENCOUNTER → 2021-01-03 | Outpatient (CLI) | payer MEDICARE, OTHER ==
[~2021-01-03] MED LIST changes: +ADV50250 INH; +DOCU-148 PO; +ERGO500056 PO; +LEVO75TA7 PO; +LIDOcaine 2% 5ml jelly ONE; +MONT10TA32 PO; -MONT10TA97 PO; +NORT75CA PO; -SULF1TAB49 PO
[2021-01-03 10:26] LABS: ALBUMIN 3.2 G/DL (3.4-5.0); ALBUMIN/GLOBULIN RATIO 0.7 (1.1-1.5); ALKALINE PHOSPHATASE 142 IU/L (46-116); BLOOD UREA NITROGEN 14 MG/DL (7-18); C-REACTIVE PROTEIN 1.53 MG/DL (0.0-0.5); CALCIUM 8.8 MG/DL (8.5-10.1); CHLORIDE 109 MMOL/L (99-107); CREATININE 1.08 MG/DL (0.40-0.90); PRE OP ALT 24 U/L (30-65); PRE OP ANION GAP 6 (8-16); PRE OP AST 14 U/L (10-37); PRE OP BILIRUB, TOTAL 0.2 MG/DL (0.0-1.0); PRE OP GLUCOSE 101 MG/DL (70-104); PRE OP POTASSIUM 3.8 MMOL/L (3.4-5.1); PRE OP SODIUM 142 MMOL/L (135-145); TOTAL CARBON DIOXIDE 26.6 MMOL/L (24-32); TOTAL PROTEIN 7.6 G/DL (6.4-8.2); eGFR 53 ML/MIN
[2021-01-03 13:02] LABS: BASOPHILS # (AUTO) 0.1 X10'3 (0-0.2); BASOPHILS % (AUTO) 1.4 % (0-1); EOSINOPHILS % (AUTO) 16.8 % (0-6); LYMPHOCYTES # (AUTO) 1.4 X10'3 (1.1-4.8); LYMPHOCYTES % (AUTO) 23.9 % (21-51); MEAN CORPUSCULAR HEMOGLOBIN 28.8 PG (27.0-31.0); MEAN CORPUSCULAR HGB CONC 32.7 g/dL (33.0-36.5); MONOCYTES # (AUTO) 0.4 X10'3 (0-0.9); MONOCYTES % (AUTO) 6.3 % (2-12); NEUTROPHILS % (AUTO) 51.6 % (42-75); PRE OP HEMATOCRIT 33.5 % (35.0-45.0); PRE OP PLATELET COUNT 289 X10'3 (140-440); RED CELL DISTRIBUTION WIDTH 15.6 % (11.5-14.5)
[2021-01-03 13:04] LABS: PRE OP HEMOGLOBIN 10.9 g/dL (12.0-16.0)
== END | disposition home or self-care (01) ==
LOC: WOUND CARE 08:58
PROVIDERS: ATTEND Nurse Practitioner
DX: T81.32XD Disruption of internal operation (surgical) wound, not elsewhere classified, subsequent encounter (principal); L98.492 Non-pressure chronic ulcer of skin of other sites with fat layer exposed; J44.9 Chronic obstructive pulmonary disease, unspecified; E03.8 Other specified hypothyroidism; K43.2 Incisional hernia without obstruction or gangrene; K66.0 Peritoneal adhesions (postprocedural) (postinfection); K55.9 Vascular disorder of intestine, unspecified; K42.9 Umbilical hernia without obstruction or gangrene; E66.01 Morbid (severe) obesity due to excess calories; F41.9 Anxiety disorder, unspecified; F31.9 Bipolar disorder, unspecified; Z79.2 Long term (current) use of antibiotics; Z79.890 Hormone replacement therapy; Z68.41 Body mass index [BMI] 40.0-44.9, adult; Z98.890 Other specified postprocedural states; Z87.891 Personal history of nicotine dependence; Z79.899 Other long term (current) drug therapy; Z90.49 Acquired absence of other specified parts of digestive tract; Y83.8 Other surgical procedures as the cause of abnormal reaction of the patient, or of later complication, without mention of misadventure at the time of the procedure
CPT/HCPCS: 11042; 36415; 80053; 85025; 85651; 86140; 87635; 93005

== ENCOUNTER 2021-01-04 09:16 | Day surgery (SDC) | payer MEDICARE, OTHER ==
[~2021-01-04] VITALS: Ht 177.8 cm; Wt 135.8 kg
[2021-01-04] VITALS (7 sets, daily range): BP systolic 118–151; BP diastolic 57–86
[~2021-01-04 09:16] MED LIST changes: -HYOS-26 PO; -LEVO88TA39 PO; -LIDOcaine 2% 5ml jelly ONE; +ceFOXitin 2GM-NS 100mL ADDvant 100 ML IV ONE; +famotidine 20mg tablet PO ONE; +ringers solution, lacted 1,000 ML IV SCH
[2021-01-04] MEDS ORDERED: fentaNYL/PF 50MCG/1 ML 2ML syringe ONE (15:16)
[2021-01-04] MEDS ORDERED: midazolam 1 mg/ML 2ml injection ONE (15:16)
[2021-01-04] MEDS ORDERED: meperidine/PF 25mg/ml syringe IV PRN ×3 (15:35)
[2021-01-04] MEDS ORDERED: ondansetron/PF 4mg/2ml inj IV PRN (15:35)
[2021-01-04] MEDS ORDERED: morphine 2 MG/ML inj. syringe IV PRN (15:35)
[2021-01-04] MEDS ORDERED: proCHLORperazine 10 MG/2 ml inj IV PRN (15:35)
[2021-01-04] MEDS ORDERED: ringers solution, lacted 1,000 ML IV SCH (15:35)
[2021-01-04] MEDS ORDERED: morphine 4 MG/ML inj SYRINge IV PRN (15:35)
[2021-01-04] MEDS ORDERED: propofol inj 20 ML IV ONE (16:10)
--- NOTE | 2021-01-04 17:04 | NUR ---
PT READY FOR DISCHARGE. UP AND ABOUT IN ROOM, STEADY ON FEET. REVIEWED DISCHARGE INSTRUCTIONS, INCLUDING THE IMPORTANCE OF CALLING WOUND CARE TOMORROW FOR F/U AND SHOWERING INSTRUCTIONS. TO CAR VIA W/C ACCOMPANIED BY NURSE WITHOUT INCIDENT
== END 2021-01-04 17:04 | disposition home or self-care (01) ==
LOC: PAS 09:16
PROVIDERS: ATTEND Surgery
DX: T81.32XA Disruption of internal operation (surgical) wound, not elsewhere classified, initial encounter (principal); E03.8 Other specified hypothyroidism; J44.9 Chronic obstructive pulmonary disease, unspecified; G47.30 Sleep apnea, unspecified; F31.9 Bipolar disorder, unspecified; E66.01 Morbid (severe) obesity due to excess calories; Z68.41 Body mass index [BMI] 40.0-44.9, adult; Z90.49 Acquired absence of other specified parts of digestive tract; Z98.890 Other specified postprocedural states; Z20.822 Contact with and (suspected) exposure to COVID-19; Y83.8 Other surgical procedures as the cause of abnormal reaction of the patient, or of later complication, without mention of misadventure at the time of the procedure; Y92.89 Other specified places as the place of occurrence of the external cause
CPT/HCPCS: 11042; 36415; 82948; 87426; 97606; J0694; J2250; J2405; J2704; J3010; J7120; A4618; A6407; A7000

== ENCOUNTER 2021-12-04 05:55 | Inpatient (IN) | payer MEDICARE, MEDICAID ==
[2021-11-27 15:22] LABS: BASOPHILS # (AUTO) 0.1 X10'3 (0-0.2); BASOPHILS % (AUTO) 1.8 % (0-1); EOSINOPHILS # (AUTO) 0.5 X10'3 (0-0.9); EOSINOPHILS % (AUTO) 8.7 % (0-6); LYMPHOCYTES # (AUTO) 1.8 X10'3 (1.1-4.8); LYMPHOCYTES % (AUTO) 31.8 % (21-51); MEAN CORPUSCULAR HEMOGLOBIN 31.5 PG (27.0-31.0); MEAN CORPUSCULAR HGB CONC 33.9 g/dL (33.0-36.5); MEAN CORPUSCULAR VOLUME 93.1 FL (78-98); MEAN PLATELET VOLUME 7.6 FL (7.4-10.4); MONOCYTES # (AUTO) 0.4 X10'3 (0-0.9); MONOCYTES % (AUTO) 7.6 % (2-12); NEUTROPHILS # (AUTO) 2.8 X10'3 (1.8-7.7); NEUTROPHILS % (AUTO) 50.1 % (42-75); PRE OP HEMATOCRIT 36.5 % (35.0-45.0); PRE OP HEMOGLOBIN 12.4 g/dL (12.0-16.0); PRE OP PLATELET COUNT 277 X10'3 (140-440); RED BLOOD COUNT 3.92 X10'6 (4.20-5.60); RED CELL DISTRIBUTION WIDTH 13.9 % (11.5-14.5)
[2021-11-27 15:33] LABS: ALBUMIN 3.8 G/DL (3.4-5.0); ALKALINE PHOSPHATASE 97 IU/L (46-116); BLOOD UREA NITROGEN 13 MG/DL (7-18); BUN/CREATININE RATIO 13.3 (6.6-38.0); CALCIUM 9.2 MG/DL (8.5-10.1); CHLORIDE 107 MMOL/L (99-107); CREATININE 0.98 MG/DL (0.40-0.90); PRE OP ALT 28 U/L (30-65); PRE OP ANION GAP 6 (8-16); PRE OP AST 13 U/L (10-37); PRE OP BILIRUB, TOTAL 0.2 MG/DL (0.0-1.0); PRE OP GLUCOSE 105 MG/DL (70-104); PRE OP POTASSIUM 3.9 MMOL/L (3.4-5.1); PRE OP SODIUM 141 MMOL/L (135-145); TOTAL CARBON DIOXIDE 28.2 MMOL/L (24-32); TOTAL PROTEIN 7.6 G/DL (6.4-8.2); eGFR 60 ML/MIN
[~2021-12-04] VITALS: Ht 177.8 cm; Wt 149.1 kg
[2021-12-04] VITALS (25 sets, daily range): BP systolic 128–159; BP diastolic 70–86
[~2021-12-04 05:55] MED LIST changes: -ADV50250 INH; -ALB0.5UD IH; -DOCU-148 PO; +FLUT1BLS10 PO; +METF-436 PO; +MONT-40 PO; -MONT10TA32 PO; -PANT-47 PO; -RANI150T8 PO; +albuterol 2.5 MG/3 ML nebule NEB ONE; +ceFAZolin inj. 3,000 MG in normal saline 100ml IV soln 100 ML IV ONE; -ceFOXitin 2GM-NS 100mL ADDvant 100 ML IV ONE
[2021-12-04] MEDS ORDERED: BUPIVAcaine/PF 2.5mg/ml (0.25%) 10ml vial ONE (06:40)
[2021-12-04] MEDS ORDERED: ondansetron/PF 4mg/2ml inj IV PRN (07:20)
[2021-12-04] MEDS ORDERED: hydrALAZINE 20mg/ml inj. IV PRN (07:20)
[2021-12-04] MEDS ORDERED: ringers solution, lacted 1,000 ML IV SCH (07:20)
[2021-12-04] MEDS ORDERED: morphine 2 MG/ML inj. syringe IV PRN (07:20)
[2021-12-04] MEDS ORDERED: labetalol 20mg/4ml (5mg/ml) syringe IV PRN (07:20)
[2021-12-04] MEDS ORDERED: fentaNYL/PF 50MCG/1 ML 2ML syringe IV PRN (07:20)
[2021-12-04 07:24] LABS: APTT 30 SECONDS (22-32)
[2021-12-04 07:26] LABS: CLARITY,URINE CLEAR (Clear); COLOR,URINE YELLOW (Yellow); GLUCOSE, URINE NEGATIVE (Neg); KETONES,URINE NEGATIVE (Neg); LEUKOCYTE ESTERASE ,URINE SMALL (Neg); NITRITES, URINE NEGATIVE (Neg); OCCULT BLOOD,URINE NEGATIVE (Neg); PH,URINE 5.5 (4.8-8.0); PROTEIN,URINE NEGATIVE (Neg); UROBILINOGEN,URINE 0.2 E.U/dL (0.2-1.0)
[2021-12-04 07:38] LABS: UA COLLECTION TYPE CLN CATCH MIDSTREAM
[2021-12-04 07:40] LABS: BACTERIA,URINE 1+ /HPF (Neg); MUCUS STRANDS NONE SEEN /LPF (Neg); RBC,URINE NONE SEEN /HPF (0-2); SQUAMOUS EPITHELIAL CELL,UR MANY /LPF (FEW)
[2021-12-04] MEDS ORDERED: MIDAZolam 1 MG/ML 5ML VIAL ONE (07:52)
[2021-12-04] MEDS ORDERED: fentaNYL /PF 50mcg/ml 5ml ampule ONE (07:52)
[2021-12-04] MEDS ORDERED: LIDOcaine 2% (20mg/ml) 5ml vial ONE (08:56)
[2021-12-04] MEDS ORDERED: labetalol 20mg/4ml (5mg/ml) syringe IV ONE (08:56)
[2021-12-04] MEDS ORDERED: propofol inj 20 ML IV ONE ×2 (08:56)
[2021-12-04] MEDS ORDERED: dexamethasone sod phosphate 4mg/ml inj. ONE (08:57)
[2021-12-04] MEDS ORDERED: rocuronium 10mg/ml inj IV ONE ×3 (08:57→10:11)
[2021-12-04] MEDS ORDERED: ondansetron/PF 4mg/2ml inj ONE (08:57)
[2021-12-04] MEDS ORDERED: sugammadex 200mg/2ml injection IV ONE (10:06)
[2021-12-04] MEDS ORDERED: fentaNYL/PF 50MCG/1 ML 2ML syringe ONE ×2 (10:16→12:04)
--- NOTE | 2021-12-04 12:43 | NUR ---
Received from OR via LUCIANO, accompanied by Anesthesiologist DR. RIOS and report given by Anesthesiolgist AND OR NURSE. PT ARRIVED DROWSY ON 10L OF 02. PT IS EXPERIENCING SEVERE ABD PAIN AND NAUSEA. MEDICATED PER EMAR. LR RUNNING TO 20G IV ON LEFT HAND. 4 ABD BANDAID SITES NOTED C/D/I AND ABD BINDER IN PLACE. VSS. WILL CONTINUE TO MONITOR. Addendum: 12/04/21 at 1318 by Melissa Melendez RN Amended: Links added.
[2021-12-04] MEDS: fentaNYL/PF 50MCG/1 ML 2ML syringe IV PRN ×2 (12:54→13:08)
[2021-12-04] MEDS: proCHLORperazine 10 MG/2 ml inj IV PRN ×2 (13:09→13:20)
[2021-12-04] MEDS: morphine 4 MG/ML inj SYRINge IV PRN ×2 (13:20→13:30)
[2021-12-04] MEDS ORDERED: acetaminophen 1,000mg/100ml IV 100 ML IV ONE (13:40)
[2021-12-04] MEDS ORDERED: ketamine 50 mg/ml 10ml vial IV ONE (13:40)
[2021-12-04] MEDS ORDERED: ketorolac tromethamine 15mg/ml inj. IV ONE (13:40)
[2021-12-04] MEDS ORDERED: morphine 4 MG/ML inj SYRINge IV PRN (13:40)
[2021-12-04] MEDS ORDERED: HYDROmorphone inj. 0.5 MG/0.5 ML DISP.SYRIN IV PRN (13:45)
[2021-12-04] MEDS: potassium CL 20mEq in D5-1/2NS 1,000 ML IV SCH ×3 (13:45→21:17)
[2021-12-04] MEDS: ketorolac trometh. 30mg/ml inj. IV SCH ×2 (14:00→19:19)
[2021-12-04] MEDS: HYDROcodone/acetaminophen 10/325mg tab PO PRN (14:21)
--- NOTE | 2021-12-04 15:13 | NUR ---
Report called to receiving nurse DICK AGUILAR. Transferred via GURNEY WITH ALL Belongings AND BIPAP MACHINE. PT HAS MET D/C CRITERIA FROM RECOVERY. VSS. PT PAIN IS AT TOLERABLE LEVEL. NAUSEA SUBSIDED. ABD DARIEL C/D/I. Special Issues communicated to receiving nurse. TRANSPORTED PT TO SURGICAL UNIT. BED IN LOW POSITION WITH 2 RAILS UP. CALL LIGHT WITHIN REACH. Addendum: 12/04/21 at 1546 by Melissa Melendez RN Amended: Links added.
--- NOTE | 2021-12-04 15:45 | NUR ---
Pt. brought to floor. 0 c/o pain. Pt. has not voided since OR. Fluids per order. Post op VS started and stable. Pt. on 3 LPM 02.
[2021-12-04] MEDS: ceFAZolin inj. 1,000 MG in dextrose 5%-water 50ml 50 ML IV SCH ×2 (17:04→23:11)
--- NOTE | 2021-12-04 18:47 | NUR ---
Gave report to Haley JENNINGS
[2021-12-04] MEDS: gabapentin 300mg capsule PO SCH (20:54)
[2021-12-04] MEDS: oxcarbazepine 150mg tablet PO SCH (23:48)
[2021-12-04] MEDS: quetiapine 100mg tablet PO SCH (23:48)
[2021-12-04] MEDS: topiramate 100mg tablet PO SCH (23:49)
[2021-12-05] MEDS: ketorolac trometh. 30mg/ml inj. IV SCH ×4 (01:06→20:07)
[2021-12-05] MEDS: albuterol 2.5 MG/3 ML nebule NEB SCH ×4 (03:00→19:55)
[2021-12-05] MEDS: potassium CL 20mEq in D5-1/2NS 1,000 ML IV SCH ×2 (05:21→05:31)
[2021-12-05 06:46] LABS: BASOPHILS # (AUTO) 0.1 X10'3 (0-0.2); BASOPHILS % (AUTO) 0.9 % (0-1); EOSINOPHILS # (AUTO) 0.2 X10'3 (0-0.9); HEMATOCRIT 35.3 % (35.0-45.0); HEMOGLOBIN 12.1 g/dl (12.0-16.0); LYMPHOCYTES % (AUTO) 27.6 % (21-51); MEAN CORPUSCULAR HEMOGLOBIN 31.8 PG (27.0-31.0); MEAN CORPUSCULAR HGB CONC 34.3 g/dL (33.0-36.5); MEAN CORPUSCULAR VOLUME 92.8 FL (78-98); MEAN PLATELET VOLUME 7.8 FL (7.4-10.4); MONOCYTES # (AUTO) 0.7 X10'3 (0-0.9); MONOCYTES % (AUTO) 10.3 % (2-12); NEUTROPHILS # (AUTO) 4.2 X10'3 (1.8-7.7); NEUTROPHILS % (AUTO) 58.2 % (42-75); PLATELET COUNT 240 X10'3 (140-440); RED CELL DISTRIBUTION WIDTH 13.8 % (11.5-14.5); WHITE BLOOD COUNT 7.2 X10'3 (4.5-11.0)
[2021-12-05 07:14] LABS: ALBUMIN 3.2 G/DL (3.4-5.0); ANION GAP 6 (8-16); BLOOD UREA NITROGEN 14 MG/DL (7-18); CALCIUM 8.3 MG/DL (8.5-10.1); CHLORIDE 106 MMOL/L (99-107); GLUCOSE 119 MG/DL (70-104); POTASSIUM 3.7 MMOL/L (3.5-5.1); SODIUM 139 MMOL/L (135-145); TOTAL CARBON DIOXIDE 26.8 MMOL/L (24-32); eGFR 58 ML/MIN
[2021-12-05 08:00] VITALS: BP 123/47
[2021-12-05] MEDS: gabapentin 300mg capsule PO SCH ×3 (08:04→21:07)
[2021-12-05] MEDS: metFORMIN 500mg tablet PO SCH (08:04)
[2021-12-05] MEDS: levoTHYROXINE 75mcg tablet PO SCH (08:04)
[2021-12-05] MEDS: ceFAZolin inj. 1,000 MG in dextrose 5%-water 50ml 50 ML IV SCH (08:04)
[2021-12-05] MEDS: fluticasone nasal spray 16GM bottle NS SCH (08:04)
[2021-12-05] MEDS: budesonide 0.5mg/2ml UD nebule IH SCH ×2 (08:50→19:55)
[2021-12-05] MEDS: HYDROcodone/acetaminophen 10/325mg tab PO PRN ×3 (09:30→17:59)
[2021-12-05 11:00] VITALS: BP 145/73
[2021-12-05 16:36] LABS: LIPASE < 50 U/L (73-393)
[2021-12-05 18:00] VITALS: BP 123/74
[2021-12-05] MEDS: nortriptyline 25mg capsule PO SCH (21:05)
[2021-12-05] MEDS: oxcarbazepine 150mg tablet PO SCH (21:07)
[2021-12-05] MEDS: venlafaxine XR 75mg capsule (Q24H) PO SCH (21:07)
[2021-12-05] MEDS: montelukast 10mg tablet PO SCH (21:08)
[2021-12-05] MEDS: quetiapine 100mg tablet PO SCH (21:08)
[2021-12-05] MEDS: topiramate 100mg tablet PO SCH (21:08)
[2021-12-05] MEDS: cetirizine 10mg tablet PO SCH (21:08)
[2021-12-06] VITALS: BP 122/45
[2021-12-06] MEDS: ketorolac trometh. 30mg/ml inj. IV SCH ×4 (02:10→20:10)
[2021-12-06] MEDS: albuterol 2.5 MG/3 ML nebule NEB SCH ×4 (03:00→19:39)
[2021-12-06] MEDS: potassium CL 20mEq in D5-1/2NS 1,000 ML IV SCH ×3 (05:45→23:14)
[2021-12-06] MEDS: HYDROcodone/acetaminophen 10/325mg tab PO PRN (06:06)
--- NOTE | 2021-12-06 06:48 | NUR ---
Patient in room JENNIFER 354. I have received report from Haley JENNINGS Traveler and had the opportunity to ask questions and assume patient care.
[2021-12-06 06:57] LABS: BASOPHILS % (AUTO) 0.5 % (0-1); EOSINOPHILS # (AUTO) 0.5 X10'3 (0-0.9); EOSINOPHILS % (AUTO) 8.5 % (0-6); HEMATOCRIT 33.4 % (35.0-45.0); HEMOGLOBIN 11.2 g/dl (12.0-16.0); LYMPHOCYTES # (AUTO) 1.2 X10'3 (1.1-4.8); LYMPHOCYTES % (AUTO) 21.1 % (21-51); MEAN CORPUSCULAR HEMOGLOBIN 31.4 PG (27.0-31.0); MEAN CORPUSCULAR HGB CONC 33.6 g/dL (33.0-36.5); MEAN CORPUSCULAR VOLUME 93.6 FL (78-98); MONOCYTES # (AUTO) 0.7 X10'3 (0-0.9); MONOCYTES % (AUTO) 11.4 % (2-12); NEUTROPHILS # (AUTO) 3.4 X10'3 (1.8-7.7); NEUTROPHILS % (AUTO) 58.5 % (42-75); PLATELET COUNT 225 X10'3 (140-440); RED BLOOD COUNT 3.57 X10'6 (4.20-5.60); RED CELL DISTRIBUTION WIDTH 13.6 % (11.5-14.5); WHITE BLOOD COUNT 5.7 X10'3 (4.5-11.0)
[2021-12-06] MEDS: ondansetron/PF 4mg/2ml inj IV PRN ×2 (07:11→14:43)
[2021-12-06] MEDS: budesonide 0.5mg/2ml UD nebule IH SCH ×2 (07:27→19:39)
[2021-12-06 08:00] VITALS: BP 122/66
[2021-12-06] MEDS: fluticasone nasal spray 16GM bottle NS SCH (09:09)
[2021-12-06] MEDS: metFORMIN 500mg tablet PO SCH (09:10)
[2021-12-06] MEDS: gabapentin 300mg capsule PO SCH ×3 (09:10→20:11)
[2021-12-06] MEDS: levoTHYROXINE 75mcg tablet PO SCH (09:10)
[2021-12-06 11:00] VITALS: BP_SYST 116; BP_SYST 120; BP_DIAS 54; BP_DIAS 64
[2021-12-06] MEDS ORDERED: metoclopramide 5 mg/ml inj IV PRN (16:10)
--- NOTE | 2021-12-06 18:30 | NUR ---
Problems reprioritized. Patient report given, questions answered & plan of care reviewed with yesy JENNINGS.
--- NOTE | 2021-12-06 18:30 | NUR ---
Patient in room [facility]ENN[facility] 354. I have received report from DICK Burr and had the opportunity to ask questions and assume patient care.
[2021-12-06 20:00] VITALS: BP 136/82
[2021-12-06] MEDS ORDERED: enoxaparin 40mg/0.4ml syringe SUBCUT SCH (20:00)
[2021-12-06] MEDS: metoclopramide 5 mg/ml inj IV SCH (20:11)
[2021-12-06] MEDS: nortriptyline 25mg capsule PO SCH (20:12)
[2021-12-06] MEDS: montelukast 10mg tablet PO SCH (20:12)
[2021-12-06] MEDS: topiramate 100mg tablet PO SCH (20:12)
[2021-12-06] MEDS: venlafaxine XR 75mg capsule (Q24H) PO SCH (20:13)
[2021-12-06] MEDS: cetirizine 10mg tablet PO SCH (20:13)
[2021-12-06] MEDS: oxcarbazepine 150mg tablet PO SCH (20:13)
[2021-12-06] MEDS: quetiapine 100mg tablet PO SCH (20:14)
[2021-12-07] VITALS: BP 91/51
[2021-12-07] MEDS: metoclopramide 5 mg/ml inj IV SCH ×2 (02:20→08:03)
[2021-12-07] MEDS: ketorolac trometh. 30mg/ml inj. IV SCH ×2 (02:21→08:02)
[2021-12-07] MEDS: albuterol 2.5 MG/3 ML nebule NEB SCH ×2 (03:00→08:58)
[2021-12-07 06:03] LABS: BASOPHILS % (AUTO) 0.7 % (0-1); EOSINOPHILS # (AUTO) 0.5 X10'3 (0-0.9); EOSINOPHILS % (AUTO) 10.1 % (0-6); HEMATOCRIT 30.9 % (35.0-45.0); HEMOGLOBIN 10.5 g/dl (12.0-16.0); LYMPHOCYTES # (AUTO) 1.5 X10'3 (1.1-4.8); LYMPHOCYTES % (AUTO) 29.9 % (21-51); MEAN CORPUSCULAR HEMOGLOBIN 31.9 PG (27.0-31.0); MEAN CORPUSCULAR HGB CONC 34.1 g/dL (33.0-36.5); MEAN CORPUSCULAR VOLUME 93.8 FL (78-98); MEAN PLATELET VOLUME 7.6 FL (7.4-10.4); MONOCYTES # (AUTO) 0.6 X10'3 (0-0.9); MONOCYTES % (AUTO) 12.1 % (2-12); NEUTROPHILS # (AUTO) 2.4 X10'3 (1.8-7.7); NEUTROPHILS % (AUTO) 47.2 % (42-75); PLATELET COUNT 204 X10'3 (140-440); RED BLOOD COUNT 3.29 X10'6 (4.20-5.60); RED CELL DISTRIBUTION WIDTH 13.5 % (11.5-14.5); WHITE BLOOD COUNT 5.2 X10'3 (4.5-11.0)
--- NOTE | 2021-12-07 06:11 | NUR ---
Patient in room JENNIFER 354. I have received report from Diana JENNINGS and had the opportunity to ask questions and assume patient care.
--- NOTE | 2021-12-07 06:16 | NUR ---
Problems reprioritized. Patient report given, questions answered & plan of care reviewed with DICK Burr.
[2021-12-07 07:00] VITALS: BP 120/54
[2021-12-07] MEDS: gabapentin 300mg capsule PO SCH ×2 (08:01→12:43)
[2021-12-07] MEDS: levoTHYROXINE 75mcg tablet PO SCH (08:01)
[2021-12-07] MEDS: fluticasone nasal spray 16GM bottle NS SCH (08:01)
[2021-12-07] MEDS: metFORMIN 500mg tablet PO SCH (08:01)
[2021-12-07] MEDS: budesonide 0.5mg/2ml UD nebule IH SCH (08:57)
[2021-12-07 11:00] VITALS: BP 133/64
[2021-12-07] MEDS: HYDROcodone/acetaminophen 10/325mg tab PO PRN (12:44)
--- NOTE | 2021-12-07 16:00 | NUR ---
PT IS A & O X4 AND IN APPARENT DISTRESS. PT IS AN RN, VERY LITTLE EDUCATION REQUIRED. PT LISTENED TO THE INSTRUCTIONS ANYWAY AND IS ABLE TO TEACH BACK DC ORDERS. PT KNOWS THE IMPORTANCE OF FOLLOWING UP WITH DR GARCIA AND PCP. PT GATHER UP HER BELONGING AND GOT DRESSED. PT'S IV WAS DC INTACT. PT WHEELED TO THE FRONT WHERE HER FAMILY TOOK HER HOME.
[2021-12-08] MEDS ORDERED: ergocalciferol (vit D2) capsule 50,000 UNITS (1,250mcg) CAPSULE PO SCH (09:00)
== END 2021-12-07 16:08 | disposition home or self-care (01) | DRG 336 ==
LOC: PRE-OP 05:55 → SUR 3N 13:45 → OBSVTOIN 12-05 22:47
PROVIDERS: ADMIT Surgery; ATTEND Surgery
PROC: 0DNW4ZZ Release Peritoneum, Percutaneous Endoscopic Approach (ICD-10-PCS; 2021-12-04)
PROC: 8E0W4CZ Robotic Assisted Procedure of Trunk Region, Percutaneous Endoscopic Approach (ICD-10-PCS; 2021-12-04)
PROC: 0WUF4JZ Supplement Abdominal Wall with Synthetic Substitute, Percutaneous Endoscopic Approach (ICD-10-PCS; principal; 2021-12-04 08:30)
PROC: 5A09357 Assistance with Respiratory Ventilation, Less than 24 Consecutive Hours, Continuous Positive Airway Pressure (ICD-10-PCS; 2021-12-05)
DX: K43.2 Incisional hernia without obstruction or gangrene (principal); K56.7 Ileus, unspecified; Z68.42 Body mass index [BMI] 45.0-49.9, adult; K66.0 Peritoneal adhesions (postprocedural) (postinfection); E66.01 Morbid (severe) obesity due to excess calories
CPT/HCPCS: 36415; 71045; 80048; 80053; 81001; 82948; 83690; 84443; 85025; 85610; 85730; 93005; 94640; 94760; A4215; A4618; C1758; C1781; G0378; J0131; J0690; J0780; J1100; J1170; J1650; J1885; J2250; J2270; J2405; J2704; J2765; J3010; J3480; J3490; J7060; J7120; U0003; U0005

== ENCOUNTER 2023-03-20 09:27 | Emergency (ER) | payer MEDICARE, OTHER ==
[~2023-03-20] VITALS: Ht 177.8 cm; Wt 109.1 kg
[~2023-03-20 09:27] MED LIST changes: -VENL150C2 PO; +VENL150C4 PO; -albuterol 2.5 MG/3 ML nebule NEB ONE; -ceFAZolin inj. 3,000 MG in normal saline 100ml IV soln 100 ML IV ONE; -famotidine 20mg tablet PO ONE; -ringers solution, lacted 1,000 ML IV SCH
[2023-03-20 09:31] VITALS: BP 166/88
[2023-03-20 10:15] LABS: BASOPHILS # (AUTO) 0.1 X10'3 (0-0.2); BASOPHILS % (AUTO) 1.4 % (0-1); EOSINOPHILS # (AUTO) 0.5 X10'3 (0-0.9); EOSINOPHILS % (AUTO) 9.7 % (0-6); HEMATOCRIT 36.8 % (35.0-45.0); HEMOGLOBIN 12.5 g/dl (12.0-16.0); LYMPHOCYTES # (AUTO) 1.7 X10'3 (1.1-4.8); LYMPHOCYTES % (AUTO) 29.6 % (21-51); MEAN CORPUSCULAR HEMOGLOBIN 31.1 PG (27.0-31.0); MEAN CORPUSCULAR VOLUME 91.2 FL (78-98); MONOCYTES # (AUTO) 0.4 X10'3 (0-0.9); MONOCYTES % (AUTO) 7.1 % (2-12); NEUTROPHILS # (AUTO) 2.9 X10'3 (1.8-7.7); NEUTROPHILS % (AUTO) 52.2 % (42-75); PLATELET COUNT 251 X10'3 (140-440); RED BLOOD COUNT 4.03 X10'6 (4.20-5.60); RED CELL DISTRIBUTION WIDTH 13.8 % (11.5-14.5); WHITE BLOOD COUNT 5.6 X10'3 (4.5-11.0)
[2023-03-20 10:20] LABS: ALANINE AMINOTRANSFERASE 38 U/L (12-78); ALBUMIN 3.8 G/DL (3.4-5.0); ALBUMIN/GLOBULIN RATIO 1.1 (1.1-1.5); ALKALINE PHOSPHATASE 119 IU/L (46-116); ANION GAP 10 (8-16); ASPARTATE AMINO TRANSFERASE 20 U/L (10-37); BILIRUBIN,TOTAL 0.3 MG/DL (0.1-1.0); BLOOD UREA NITROGEN 13 MG/DL (7-18); BUN/CREATININE RATIO 13.8 (10.0-20.0); CHLORIDE 107 MMOL/L (99-107); CREATININE 0.94 MG/DL (0.40-0.90); GLUCOSE 129 MG/DL (70-104); POTASSIUM 3.8 MMOL/L (3.5-5.1); SODIUM 140 MMOL/L (135-145); TOTAL CARBON DIOXIDE 22.6 MMOL/L (24-32); TOTAL PROTEIN 7.4 G/DL (6.4-8.2); eGFR 62 ML/MIN
[2023-03-20 10:27] LABS: MAGNESIUM 2.1 MG/DL (1.5-2.4)
== END 2023-03-20 14:30 | disposition home or self-care (01) ==
LOC: ER 09:27
DX: R07.9 Chest pain, unspecified (principal); R60.0 Localized edema; E70.0 Classical phenylketonuria; J44.9 Chronic obstructive pulmonary disease, unspecified; F31.9 Bipolar disorder, unspecified; Z88.8 Allergy status to other drugs, medicaments and biological substances; Z79.899 Other long term (current) drug therapy; Z79.1 Long term (current) use of non-steroidal anti-inflammatories (NSAID); Z79.2 Long term (current) use of antibiotics
CPT/HCPCS: 36415; 71045; 80053; 83735; 83880; 84484; 85025; 93005; 99285

== ENCOUNTER 2024-06-15 12:59 | Emergency (ER) | payer MEDICARE, MEDICAID ==
[~2024-06-15] VITALS: Ht 177.8 cm; Wt 136.0 kg
[~2024-06-15 12:59] MED LIST changes: -VENL150C4 PO; +VENL150C5 PO
[2024-06-15 14:01] LABS: BILIRUBIN,URINE NEGATIVE (Neg); CLARITY,URINE SLIGHTLY CLOUDY (Clear); COLOR,URINE STRAW (Yellow); GLUCOSE, URINE NEGATIVE (Neg); KETONES,URINE NEGATIVE (Neg); LEUKOCYTE ESTERASE ,URINE SMALL (Neg); NITRITES, URINE NEGATIVE (Neg); OCCULT BLOOD,URINE TRACE-INTACT (Neg); PH,URINE 6.5 (4.8-8.0); PROTEIN,URINE NEGATIVE (Neg); UROBILINOGEN,URINE 0.2 E.U/dL (0.2-1.0)
[2024-06-15 14:13] LABS: BASOPHILS # (AUTO) 0.1 X10'3 (0-0.2); BASOPHILS % (AUTO) 1.4 % (0-1); EOSINOPHILS # (AUTO) 0.3 X10'3 (0-0.9); EOSINOPHILS % (AUTO) 6.3 % (0-6); HEMATOCRIT 40.6 % (35.0-45.0); HEMOGLOBIN 13.6 g/dl (12.0-16.0); LYMPHOCYTES # (AUTO) 1.8 X10'3 (1.1-4.8); LYMPHOCYTES % (AUTO) 35.3 % (21-51); MEAN CORPUSCULAR HEMOGLOBIN 31.2 PG (27.0-31.0); MEAN CORPUSCULAR HGB CONC 33.6 g/dL (33.0-36.5); MEAN CORPUSCULAR VOLUME 92.9 FL (78-98); MEAN PLATELET VOLUME 7.8 FL (7.4-10.4); MONOCYTES # (AUTO) 0.4 X10'3 (0-0.9); MONOCYTES % (AUTO) 7.4 % (2-12); NEUTROPHILS # (AUTO) 2.6 X10'3 (1.8-7.7); NEUTROPHILS % (AUTO) 49.6 % (42-75); PLATELET COUNT 291 X10'3 (140-440); RED BLOOD COUNT 4.37 X10'6 (4.20-5.60); RED CELL DISTRIBUTION WIDTH 13.9 % (11.5-14.5); WHITE BLOOD COUNT 5.2 X10'3 (4.5-11.0)
[2024-06-15 14:21] LABS: UA COLLECTION TYPE CLN CATCH MIDSTREAM
[2024-06-15 14:24] LABS: SQUAMOUS EPITHELIAL CELL,UR MODERATE /LPF (FEW)
[2024-06-15 14:25] LABS: BACTERIA,URINE FEW /HPF (Neg); RBC,URINE 0-2 /HPF (0-2)
[2024-06-15 14:26] LABS: ALANINE AMINOTRANSFERASE 32 U/L (12-78); ALBUMIN 4.1 G/DL (3.4-5.0); ALBUMIN/GLOBULIN RATIO 0.9 (1.1-1.5); ALKALINE PHOSPHATASE 127 IU/L (46-116); AMYLASE 27 U/L (25-115); ANION GAP 10 (8-16); ASPARTATE AMINO TRANSFERASE 20 U/L (10-37); BILIRUBIN,TOTAL 0.6 MG/DL (0.1-1.0); BLOOD UREA NITROGEN 7 MG/DL (7-18); BUN/CREATININE RATIO 7.4 (10.0-20.0); CALCIUM 9.3 MG/DL (8.5-10.1); CHLORIDE 105 MMOL/L (99-107); CREATININE 0.94 MG/DL (0.40-0.90); GLUCOSE 102 MG/DL (70-104); LIPASE 22 U/L (16-77); POTASSIUM 3.7 MMOL/L (3.5-5.1); SODIUM 138 MMOL/L (135-145); TOTAL CARBON DIOXIDE 23.1 MMOL/L (24-32); TOTAL PROTEIN 8.6 G/DL (6.4-8.2); eCRCL 74 ML/MIN; eGFR 62 ML/MIN
[2024-06-15 16:57] LABS: C DIFF ANTIGEN NEGATIVE (NEGATIVE); C DIFF SPECIMEN=DIARRHEA? ACCEPTABLE; C DIFFICILE TOXINS A&B NEGATIVE (Neg)
[2024-06-15] MEDS: ondansetron 4mg rapidly disintigrating tab PO ONE (18:37)
[2024-06-15] MEDS: HYDROcodone/acetaminophen 10/325mg tab PO ONE (18:38)
[2024-06-15 19:13] VITALS: TEMP 98.3
[2024-06-15 20:02] VITALS: BP 140/81; PULSE 90; RESP 18; O2SAT 98
== END 2024-06-15 20:15 | disposition home or self-care (01) ==
LOC: ER 13:00
DX: R10.84 Generalized abdominal pain (principal); E78.00 Pure hypercholesterolemia, unspecified; J45.909 Unspecified asthma, uncomplicated; F41.9 Anxiety disorder, unspecified; F31.9 Bipolar disorder, unspecified; F12.90 Cannabis use, unspecified, uncomplicated; Z91.018 Allergy to other foods; Z91.048 Other nonmedicinal substance allergy status; Z79.899 Other long term (current) drug therapy; Z79.51 Long term (current) use of inhaled steroids; Z79.84 Long term (current) use of oral hypoglycemic drugs; Z98.890 Other specified postprocedural states
CPT/HCPCS: 36415; 74176; 80053; 81001; 82150; 83690; 84145; 85025; 87088; 87324; 87449; 99285

== ENCOUNTER 2024-08-26 08:33 | Outpatient (CLI) | payer MEDICARE, OTHER ==
[~2024-08-26] VITALS: Ht 177.8 cm; Wt 138.3 kg
[2024-08-26 09:24] VITALS: PULSE 81; RESP 18; O2SAT 97
[2024-08-26] MEDS: albuterol 2.5 MG/3 ML nebule NEB PRN (09:28)
[2024-08-26 09:36] VITALS: PULSE 94; RESP 16
== END 2024-08-26 23:59 | disposition home or self-care (01) ==
LOC: RT 08:33
PROVIDERS: ATTEND Physician Assistant
DX: J44.89 Other specified chronic obstructive pulmonary disease (principal)
CPT/HCPCS: 94060; 94729; 94760

== ENCOUNTER 2025-02-17 08:26 | Outpatient (CLI) | payer MEDICARE, MEDICAID | END 2025-02-17 23:59 | disposition home or self-care (01) | LOC: RAD 08:26 | PROVIDERS: ATTEND Physician Assistant | DX: R10.32 Left lower quadrant pain (principal) | CPT/HCPCS: 76705 ==

== ENCOUNTER 2025-03-04 16:21 | Emergency (ER) | payer MEDICARE, OTHER ==
[~2025-03-04] VITALS: Ht 177.8 cm; Wt 133.3 kg
[2025-03-04 16:53] LABS: URINE HCG NEGATIVE (NEG)
[2025-03-04 16:58] LABS: BASOPHILS # (AUTO) 0.2 X10'3 (0-0.2); EOSINOPHILS # (AUTO) 0.4 X10'3 (0-0.9); HEMOGLOBIN 13.2 g/dl (12.0-16.0); LYMPHOCYTES # (AUTO) 2.2 X10'3 (1.1-4.8); LYMPHOCYTES % (AUTO) 37.9 % (21-51); MONOCYTES # (AUTO) 0.4 X10'3 (0-0.9); NEUTROPHILS # (AUTO) 2.6 X10'3 (1.8-7.7); WHITE BLOOD COUNT 5.8 X10'3 (4.5-11.0)
[2025-03-04 17:00] LABS: EOSINOPHILS % (AUTO) 6.5 % (0-6); HEMATOCRIT 38.9 % (35.0-45.0); MEAN CORPUSCULAR HEMOGLOBIN 30.7 PG (27.0-31.0); MEAN CORPUSCULAR HGB CONC 34.1 g/dL (33.0-36.5); MEAN CORPUSCULAR VOLUME 90.2 FL (78-98); MEAN PLATELET VOLUME 7.8 FL (7.4-10.4); NEUTROPHILS % (AUTO) 45.6 % (42-75); PLATELET COUNT 283 X10'3 (140-440); RED BLOOD COUNT 4.31 X10'6 (4.20-5.60); RED CELL DISTRIBUTION WIDTH 13.7 % (11.5-14.5)
[2025-03-04 17:00] LABS: BILIRUBIN,URINE NEGATIVE (Neg); CLARITY,URINE CLEAR (Clear); COLOR,URINE YELLOW (Yellow); GLUCOSE, URINE NEGATIVE (Neg); KETONES,URINE NEGATIVE (Neg); LEUKOCYTE ESTERASE ,URINE SMALL (Neg); NITRITES, URINE NEGATIVE (Neg); OCCULT BLOOD,URINE TRACE-INTACT (Neg); PROTEIN,URINE NEGATIVE (Neg); UROBILINOGEN,URINE 0.2 E.U/dL (0.2-1.0)
[2025-03-04 17:02] LABS: UA COLLECTION TYPE CLN CATCH MIDSTREAM
[2025-03-04 17:09] LABS: BACTERIA,URINE NONE SEEN /HPF (Neg); MUCUS STRANDS MODERATE /LPF (Neg); RBC,URINE 0-2 /HPF (0-2); SQUAMOUS EPITHELIAL CELL,UR FEW /LPF (FEW); TRANSITIONAL EPI CELLS,URINE FEW /HPF
[2025-03-04 17:17] LABS: ALANINE AMINOTRANSFERASE 28 U/L (12-78); ALBUMIN 4.2 G/DL (3.4-5.0); ALBUMIN/GLOBULIN RATIO 1.1 (1.1-1.5); ALKALINE PHOSPHATASE 116 IU/L (46-116); ANION GAP 6 (8-16); ASPARTATE AMINO TRANSFERASE 17 U/L (10-37); BILIRUBIN,TOTAL 0.4 MG/DL (0.1-1.0); BLOOD UREA NITROGEN 12 MG/DL (7-18); BUN/CREATININE RATIO 12.5 (10.0-20.0); CHLORIDE 105 MMOL/L (99-107); CREATININE 0.96 MG/DL (0.40-0.90); GLUCOSE 91 MG/DL (70-104); LIPASE 21 U/L (16-77); POTASSIUM 3.7 MMOL/L (3.5-5.1); SODIUM 137 MMOL/L (135-145); TOTAL PROTEIN 8.2 G/DL (6.4-8.2); eCRCL 72 ML/MIN; eGFR 60 ML/MIN
[2025-03-04 17:30] VITALS: TEMP 98.1
[2025-03-04 17:48] LABS: TOTAL CELLS COUNTED 100
[2025-03-04 17:49] LABS: PLATELET ESTIMATE NORMAL
[2025-03-04 18:55] VITALS: BP 137/97; PULSE 109; RESP 16; O2SAT 98
--- NOTE | 2025-03-04 19:07 | Physician Documentation ---
History of Present Illness ~ Chief Complaint: Abdominal Pain w/vomiting Stated Complaint: ABD/BACK PAIN Time Seen by MD: 16:42 Primary Medical Doctor: BRANNON Mode of Arrival: POV, Ambulatory HPI Patient is seen today with complaints of left-sided flank pain/lower rib pain. Patient denies any urinary symptoms currently however she does state history of frequent UTIs. Patient denies any fevers or chills or chest pain or shortness of breath or abdominal pain or nausea, vomiting, diarrhea. Patient has no other concern or complaint at this time. Patient also denies any history of kidney stones. Patient states her pain is a mild twinge or 3/10. Medication Reconciliation Allergies: Coded Allergies: aloe vera (Verified Adverse Reaction, Unknown, HIVES, 03/20/23) lactose (Unverified Adverse Reaction, Unknown, LACTOSE INTOLERANCE, DIARRHEA/ABD PAIN, 03/20/23) Scheduled Cetirizine HCl (Cetirizine HCl), 1 TAB PO HS, (Reported) Ergocalciferol (Vitamin D2) (Vitamin D2), 1 CAP PO Q5D, (Reported) Fluticasone Propion/Salmeterol (Wixela 250-50 Inhub), 1 PUFFS PO BID, (Reported) Fluticasone Propionate (Flonase), 2 SPRAYS BOTHNARES DAILY, (Reported) Levothyroxine Sodium (Levothyroxine Sodium), 1 TAB PO DAILY, (Reported) Metformin Hcl (Metformin Hcl), 1 TAB PO DAILY, (Reported) Montelukast Sodium (Montelukast Sodium), 1 TAB PO QPM, (Reported) Nortriptyline Hcl (Nortriptyline Hcl), 1 CAP PO HS, (Reported) Oxcarbazepine (Oxcarbazepine), 3 TAB PO HS, (Reported) Quetiapine Fumarate (Seroquel), 3 TAB PO HS, (Reported) Topiramate (Topamax), 1 TAB PO HS, (Reported) Venlafaxine HCl (Effexor Xr), 1 CAP PO HS, (Reported) Past Medical History Past Medical History: High Cholesterol, Asthma, Hernia, Anxiety, Bipolar Past Surgical History: cholecystectomy, other Other Past Surgical History: Hernia repair Alcohol Use: None Drug Use: marijuana Lives In: Home Occupation: employed Review of Systems Constitutional: Denies: chills, fever, weakness Eyes: Denies: pain, blurred vision ENT: Denies: ear pain, nose pain, throat pain, mouth pain Respiratory: Denies: cough, shortness of breath Cardiovascular: Denies: chest pain, palpitations Gastrointestinal: Denies: abdominal pain, nausea, vomiting Genitourinary: Denies: burning, dysuria Female Genitalia: Denies: vaginal discharge, pelvic pain Neurological: Denies: headache, dizziness Musculoskeletal: Denies: pain, swelling Integumentary: Denies: rash, lesions Allergic/Immunologic: Denies: hives, itching Hematologic/Lymphatic: Denies: no symptoms reported Psychiatric: Denies: depression, anxiety Physical Exam Vital Signs: Temperature: 98.1, Source: Oral, Heart Rate: 109, Respiratory Rate: 16, BP: 137/97, Pulse Oximetry: 98, Weight: 133.300 Oxygen Flow Rate: 0 Physical Exam General: Awake and Alert, no acute distress. HEENT: Conjunctiva pink, Sclera clear, Mucus Membranes moist. Neck: Supple without masses and tenderness. Resp: Unlabored. Lungs clear to auscultation bilaterally. Heart: Regular Rate and rhythm, normal S1 and S2 without murmur, rub or gallop. Abdomen: On exam the patient does not have any CVA tenderness on either side. Patient does have mild tenderness to palpation of left lower ribs and just below the left lateral ribs. Patient has no other abdominal tenderness or distention or guarding or rebound tenderness. Soft and non tender no organomegaly Extremities: No cyanosis,clubbing or edema. Skin: Warm and Dry. Progress Results/Orders Results/Orders Completed Orders - ANG FROST Cephalexin Capsule (Keflex Capsule) (03/04/25 19:07) Medications Received in ER Medications (Trade) Dose Ordered Sig/Moustapha Route PRN Reason Start Time Stop Time Status Last Admin Dose Admin (Keflex capsule) 500 mg ONCE STAT PO 03/04/25 19:07 03/04/25 19:09 DC 03/04/25 19:27 500 MG Vital Signs 03/04/25 03/04/25 03/04/25 03/04/25 16:23 17:30 17:33 18:55 Temp 99.1 98.1 Pulse 116 108 109 Resp 16 16 16 16 B/P (MAP) 184/86 149/100 (116) 137/97 (110) Pulse Ox 97 98 98 O2 Flow Rate 0 0 0 Laboratory Tests Test 03/04/25 16:28 03/04/25 16:42 Urine Specimen Description Cln catch midstream Urine Color Yellow Urine Clarity Clear Urine pH 6.0 Urine Specific [place] <=1.005 Urine Protein Negative Urine Glucose (UA) Negative Urine Ketones Negative Urine Occult Blood Trace-intact Urine Nitrite Negative Urine Bilirubin Negative Urine Urobilinogen 0.2 Urine Leukocyte Esterase Small H Urine RBC 0-2 Urine WBC 5-10 H Urine Squamous Epithelial Cells Few Urine Transitional Epithelial Cells Few Urine Bacteria None seen Urine Mucus Moderate Urine Culture Indicated Indicated Volume Urine Centrifuged 10 ml Urine HCG, Qualitative Negative Urine Comment White Blood Count 5.8 Red Blood Count 4.31 Hemoglobin 13.2 Hematocrit 38.9 Mean Corpuscular Volume 90.2 Mean Corpuscular Hemoglobin 30.7 Mean Corpuscular Hemoglobin Concent 34.1 Red Cell Distribution Width 13.7 Platelet Count 283 Mean Platelet Volume 7.8 Neutrophils (%) (Auto) 45.6 Lymphocytes (%) (Auto) 37.9 Monocytes (%) (Auto) 7.0 Eosinophils (%) (Auto) 6.5 H Basophils (%) (Auto) 3.0 H Neutrophils # (Auto) 2.6 Lymphocytes # (Auto) 2.2 Monocytes # (Auto) 0.4 Eosinophils # (Auto) 0.4 Basophils # (Auto) 0.2 CBC Comment Differential Total Cells Counted 100 Neutrophils % (Manual) 47.0 Lymphocytes % (Manual) 34.0 Monocytes % (Manual) 12.0 Eosinophils % (Manual) 6.0 Basophils % (Manual) 1.0 Platelet Estimate Normal Red Blood Cell Morphology Normal Basophilic Stippling Sodium Level 137 Potassium Level 3.7 Chloride Level 105 Carbon Dioxide Level 26.0 Anion Gap 6 L Blood Urea Nitrogen 12 Creatinine 0.96 H Estimated GFR/1.73 m2 60 BUN/Creatinine Ratio 12.5 Glucose Level 91 Calcium Level 9.0 Total Bilirubin 0.4 Aspartate Amino Transf (AST/SGOT) 17 Alanine Aminotransferase (ALT/SGPT) 28 Alkaline Phosphatase 116 Total Protein 8.2 Albumin 4.2 Globulin 4.0 Albumin/Globulin Ratio 1.1 Lipase 21 Chemistry Comments Microbiology Date/Time Source Procedure Growth Status 03/04/25 17:09 Urine Clean Catch Midstream Urine Culture - Preliminary Culture received. Resulted Medical Decision Making Findings Patient is seen today with complaints of left-sided flank pain/lower rib pain. Patient states she has had this pain off and on since July. Patient denies any urinary symptoms currently however she does state history of frequent UTIs. Patient denies any fevers or chills or chest pain or shortness of breath or abdominal pain or nausea, vomiting, diarrhea. Patient has no other concern or complaint at this time. Patient also denies any history of kidney stones. Patient states her pain is a mild twinge or 3/10. Patient did have UA that did show sign for urinary tract infection. Patient's labs were otherwise unremarkable. Patient was given dose of Keflex 500 mg in the ED today. Prescription of Keflex 500 mg t.i.d. for seven days sent to patient pharmacy. Patient will return to ED with any worsening, concerning or changing symptoms. Departure Disposition: HOME / SELF CARE / HOMELESS Impression: Primary Impression: Acute urinary tract infection Condition: Improved Discharge Instructions: Urinary Tract Infection, Adult Additional Instructions: Patient did have UA that did show sign for urinary tract infection. Patient's labs were otherwise unremarkable. Patient was given dose of Keflex 500 mg in the ED today. Prescription of Keflex 500 mg t.i.d. for seven days sent to patient pharmacy. Patient will return to ED with any worsening, concerning or changing symptoms. Referrals: NO PRIMARY CARE PROVIDER (PCP) Prescriptions Cephalexin*Monohydrate* (Keflex*) 500 Mg Capsule 1 CAP PO Q8H for 10 Days, #30 CAP Prov: ANG FROST PAC 03/04/25 Signature Scribe Signature: No scribe Attestation: No scribe ANG FROST PAC March 04, 2025 19:07
[2025-03-04] MEDS: cephalexin 250mg capsule PO STA (19:27)
[2025-03-04] MEDS ORDERED: CEPH-585 PO (19:50)
== END 2025-03-04 19:53 | disposition home or self-care (01) ==
LOC: ER 16:22
DX: N39.0 Urinary tract infection, site not specified (principal); J45.909 Unspecified asthma, uncomplicated; E78.00 Pure hypercholesterolemia, unspecified; F31.9 Bipolar disorder, unspecified; F12.90 Cannabis use, unspecified, uncomplicated; Z90.49 Acquired absence of other specified parts of digestive tract; Z98.890 Other specified postprocedural states; Z91.018 Allergy to other foods; Z79.52 Long term (current) use of systemic steroids; Z79.899 Other long term (current) drug therapy
CPT/HCPCS: 36415; 80053; 81001; 81025; 83690; 85007; 85025; 87088; 99283